=== PATIENT | male | born 1955 | race Caucasian/White ===

== ENCOUNTER 2020-10-06 14:47 | Observation (INO) ==
[2020-10-06] MEDS ORDERED: VANCOMYCIN HCL 2,000 MG in SODIUM CHLORIDE 0.9% 500 ML IV ONE (15:05)
[2020-10-06] MEDS ORDERED: CEFEPIME 2,000 MG/20 ML VIAL IV STA (15:05)
[2020-10-06] MEDS ORDERED: VANCOMYCIN CONSULT ACTIVE PRN ×2 (15:05→19:48)
--- NOTE | 2020-10-06 15:12 | Emergency Department Note ---
Impression & Plan Infection, dialysis vascular access, ESRD (end stage renal disease), Cellulitis ED Provider Note NAME: MICHAEL GREEN AGE: 65 SEX: M : 1955 ARRIVES VIA: Walk-In INFORMANT: Patient ED PROVIDER(S): Estuardo Car DO CHIEF COMPLAINT: Infected dialysis line HPI: Patient is a 65-year-old male who presents the ER for infected dialysis catheter. He replaced just under 2 weeks ago. He has not noticed any redness but noticed that recently started draining yellow-green purulent material. He notes the skin around it has been red and he was instructed to come in. He got dialysis yesterday. He received 3-1/2 hours. He denies any headache or change in vision. No fevers. No chest pain shortness of breath nausea vomiting or diarrhea. No dysuria urgency or frequency. No other exacerbating or remitting factors. ROS: See above HPI for pertinent positives & negatives. A total of 10 systems reviewed and were otherwise negative. PAST MEDICAL HISTORY:See Below PAST SURGICAL HISTORY:See Below FAMILY HISTORY:See Below SOCIAL HISTORY:See Below HOME MEDICATIONS:See Below ALLERGIES:See Below VITALS:See Below PHYSICAL EXAMINATION: GENERAL: Sitting up in bed, alert, well appearing, well nourished, no distress, non-toxic EYE EXAM: normal conjunctiva. OROPHARYNX: mask in place NECK: supple, no nuchal rigidity, no adenopathy, non-tender CHEST: Erythema on the right upper chest at the access point of the central catheter. Erythematous 12 to 12 cm. Yellow/green purulent material along with some intermittent blood on the 4 x 4's present. LUNGS: Clear to auscultation. Normal chest wall mechanics HEART: no murmurs, S1 normal and S2 normal UPPER EXTREMITIES: upper extremities are grossly normal. LOWER EXTREMITIES: No pitting edema. NEURO EXAM: Normal sensorium, cranial nerves II-XII grossly intact, normal speech, no gross weakness of arms, no gross weakness of legs. MEDICAL DECISION MAKING: Patient is a 65-year-old male end-stage kidney disease on dialysis who had a tunneled cath placed by Dr. Florentino. Patient notes its been present for about 2 weeks. Per review of the chart was placed on 01 of September. He had full course of dialysis performed yesterday. He was referred in today as he noticed yellow purulent drainage from the tunneled catheter on his right chest along with surrounding redness. He is uncertain of how long this has been present. IV was established blood work was obtained. Labs show anemia of 8.7 consistent with previous. No significant leukocytosis. INR was unremarkable. BMP with a creatinine of 6.7. BUN was elevated at 67. Lactate was normal. LFTs bilirubin was unremarkable. Troponin was checked was 0.072. He denies any chest pain or shortness of breath. Do favor that this likely secondary to his CKD. Covid was negative. X-ray was unremarkable. Patient was given IV cefepime and vancomycin. He was updated bedside. Discussed case with Dr. Florentino. Discussed the case with Abhilash Bradley for the hospitalist for admission. Triage Nursing notes reviewed. Limited review of prior medical records performed Vital Signs: reviewed and remarkable for hypertensive, tachycardic and hypothermic Differential diagnosis: Differential diagnosis includes etiologies such as sepsis, UTI, pneumonia, metabolic, electrolyte abnormalities, cardiac sources, intracerebral event, toxicologic, neurological, as well as others were entertained. ER treatment provided: See below Diagnostics interpreted by me: ECG: Sinus rhythm rate 84 Inferior Q waves T wave inversion in inferior leads QTC 460 Cardiac Monitoring: An order was placed for continuous cardiac monitoring. The monitor shows a rate of 81 with sinus rhythm. Laboratory studies: As stated above and show below. Imaging studies: Portable AP upright 1 view chest shows no focal infiltrate or pneumothorax Consultation(s): Discussed with Dr. Abhilash Bradley for further evaluation Discussed with Dr. Florentino who will evaluate him for possible removal of catheter Procedures: none Critical Care: None Past Med/Surg History Medical History Anemia Patient has received 2 units pRBC's this admission. Brain aneurysm Chronic renal impairment, stage 4 (severe) Coronary artery disease involving [place] coronary artery of [place] heart ESRD (end stage renal disease) History of CVA (cerebrovascular accident) Hypertension Macular degeneration Mixed hyperlipidemia Screen for colon cancer Screening for prostate cancer Type 2 diabetes mellitus, without long-term current use of insulin Surgical History H/O inguinal hernia repair Family History Father Prostate cancer Liver cancer Social History Smoking Status: Former smoker Tobacco Type: Cigarettes Second Hand Exposure: No; Hx Alcohol Use: No Hx Substance Use: No Preferred Language: Maori Communication Ability: Effective Member Certification Manager Required: No Beliefs That Will Affect Care: None marital status: Current Living Situation: Alone Feels Safe at Home: Yes Safety Concerns: Feels Safe At This Time caffeine: No Assistive Devices: Glasses Allergies Allergies Allergy/AdvReac Type Severity Reaction Status Date / Time No Known Allergies Allergy Verified 10/06/20 16:38 Home Meds Home Medications Medication Instructions Recorded Confirmed amlodipine 5 mg PO BID 10/06/20 10/06/20 calcium acetate(phosphat bind) 1,334 mg PO .WITH SNACKS 10/06/20 10/06/20 calcium acetate(phosphat bind) 2,001 mg PO TIDM 10/06/20 10/06/20 simvastatin 10 mg PO HS 10/06/20 10/06/20 Previous Rx's Medication Instructions Recorded B complex with C 20-folic acid 1 cap PO QAM #30 cap 09/04/20 [Renal Caps] acetaminophen 650 mg PO Q4H PRN #0 tab 09/04/20 lisinopril 10 mg PO HS #30 tab 09/04/20 Results & Data (ED) Vital Signs Vital Signs - 24 hr 10/06/20 14:54 10/06/20 15:11 10/06/20 15:41 Temperature 35.8 C L 36.6 C Temperature Source Temporal Artery Scan Oral Pulse Rate 96 H Pulse Rate [Apical] 80 Pulse Rate from SpO2 Sensor Respiratory Rate 20 18 Respiratory Effort / Characteristics Non-Labored Spontaneous Non-Labored Respiratory Depth Normal Blood Pressure 174/113 H Blood Pressure [Right Arm] 143/88 H Blood Pressure Mean 133 Blood Pressure Mean [Right Arm] 106 Blood Pressure Position Sitting Pulse Oximetry 98 94 95 Oxygen Delivery Method Room Air Room Air Room Air Sepsis Recent Fever Within 48 Hours No Sepsis New/Unexplained Change in Mental Status N/A Sepsis Action Taken by Nursing No Action Required 10/06/20 15:43 10/06/20 16:00 10/06/20 16:30 Temperature Temperature Source Pulse Rate 80 78 78 Pulse Rate [Apical] Pulse Rate from SpO2 Sensor 80 78 77 Respiratory Rate 21 19 15 Respiratory Effort / Characteristics Respiratory Depth Blood Pressure 127/83 130/77 137/83 Blood Pressure [Right Arm] Blood Pressure Mean 97 94 101 Blood Pressure Mean [Right Arm] Blood Pressure Position Pulse Oximetry 98 96 100 Oxygen Delivery Method Room Air Room Air Room Air Sepsis Recent Fever Within 48 Hours Sepsis New/Unexplained Change in Mental Status Sepsis Action Taken by Nursing 10/06/20 17:00 Temperature Temperature Source Pulse Rate 79 Pulse Rate [Apical] Pulse Rate from SpO2 Sensor 78 Respiratory Rate 24 Respiratory Effort / Characteristics Respiratory Depth Blood Pressure 144/81 H Blood Pressure [Right Arm] Blood Pressure Mean 102 Blood Pressure Mean [Right Arm] Blood Pressure Position Pulse Oximetry 98 Oxygen Delivery Method Room Air Sepsis Recent Fever Within 48 Hours Sepsis New/Unexplained Change in Mental Status Sepsis Action Taken by Nursing Laboratory Data Result diagrams: 10/06/20 15:28 10/06/20 15:28 Lab Results 10/06/20 10/06/20 10/06/20 Range/Units 15:28 15:28 15:28 WBC 7.82 (4.8-10.8) K/uL RBC 2.69 L (4.7-6.1) M/uL Hgb 8.7 L (14.0-18.0) g/dL Hct 27.0 L (42-52) % MCV 100.4 H (80-100) fL MCH 32.3 (25-34) pg MCHC 32.2 (32-36) g/dL RDW Std Deviation 68.0 H (36.4-46.3) fL RDW Coeff of Leonor 18.3 H (11.5-14.5) % Plt Count 300 (130-400) K/uL MPV 9.0 (7.4-10.4) fL Immature Gran % (Auto) 0.1 % Neut % (Auto) 63.0 % Lymph % (Auto) 17.5 % [place] % (Auto) 12.9 % Eos % (Auto) 5.5 % Baso % (Auto) 1.0 % Neut # (Auto) 4.92 (1.4-6.5) K/uL Lymph # (Auto) 1.37 (1.2-3.4) K/uL [place] # (Auto) 1.01 H (0.11-0.59) K/uL Eos # (Auto) 0.43 (0-0.5) K/uL Baso # (Auto) 0.08 (0-0.2) K/uL Immature Gran # (Auto) 0.01 (0.00-0.02) K/uL PT (9.0-12.0) Seconds INR (0.9-1.1) APTT (21.0-31.0) Seconds PTT Ratio Sodium 138 (136-145) mmol/L Potassium 5.1 (3.5-5.1) mmol/L Chloride 101 (98-107) mmol/L Carbon Dioxide 26 (21-32) mmol/L Anion Gap 10.0 (3-11) BUN 67 H (7-18) mg/dl Creatinine 6.71 H* (0.6-1.4) mg/dl Est Cr Clr Drug Dosing 12.9 ml/min Est GFR ( Amer) 9.1 Est GFR (Non-Af Amer) 7.8 BUN/Creatinine Ratio 10.0 (10-20) Glucose 93 (70-99) mg/dl Lactate (0.4-2.0) mmol/L Calcium 8.6 (8.5-10.1) mg/dl Magnesium 2.5 H (1.8-2.4) mg/dl Total Bilirubin 0.5 (0.2-1) mg/dl AST 15 (15-37) U/L ALT 20 (12-78) U/L Alkaline Phosphatase 126 H (45-117) U/L Troponin I 0.072 H* (0-0.045) ng/ml Total Protein 7.0 (6.4-8.2) gm/dl Albumin 3.4 (3.4-5.0) gm/dl Globulin 3.6 (2.5-4.0) gm/dl Albumin/Globulin Ratio 1.0 (0.9-2) Procalcitonin 0.39 (0-0.5) ng/ml COVID-19 Eval Order SARS-CoV-2, RNA, NAAT (NEGATIVE) 10/06/20 10/06/20 10/06/20 Range/Units 15:28 15:28 15:30 WBC (4.8-10.8) K/uL RBC (4.7-6.1) M/uL Hgb (14.0-18.0) g/dL Hct (42-52) % MCV (80-100) fL MCH (25-34) pg MCHC (32-36) g/dL RDW Std Deviation (36.4-46.3) fL RDW Coeff of Leonor (11.5-14.5) % Plt Count (130-400) K/uL MPV (7.4-10.4) fL Immature Gran % (Auto) % Neut % (Auto) % Lymph % (Auto) % [place] % (Auto) % Eos % (Auto) % Baso % (Auto) % Neut # (Auto) (1.4-6.5) K/uL Lymph # (Auto) (1.2-3.4) K/uL [place] # (Auto) (0.11-0.59) K/uL Eos # (Auto) (0-0.5) K/uL Baso # (Auto) (0-0.2) K/uL Immature Gran # (Auto) (0.00-0.02) K/uL PT 10.8 (9.0-12.0) Seconds INR 1.1 (0.9-1.1) APTT 25.3 (21.0-31.0) Seconds PTT Ratio 1.0 Sodium (136-145) mmol/L Potassium (3.5-5.1) mmol/L Chloride (98-107) mmol/L Carbon Dioxide (21-32) mmol/L Anion Gap (3-11) BUN (7-18) mg/dl Creatinine (0.6-1.4) mg/dl Est Cr Clr Drug Dosing ml/min Est GFR ( Amer) Est GFR (Non-Af Amer) BUN/Creatinine Ratio (10-20) Glucose (70-99) mg/dl Lactate 1.0 (0.4-2.0) mmol/L Calcium (8.5-10.1) mg/dl Magnesium (1.8-2.4) mg/dl Total Bilirubin (0.2-1) mg/dl AST (15-37) U/L ALT (12-78) U/L Alkaline Phosphatase (45-117) U/L Troponin I (0-0.045) ng/ml Total Protein (6.4-8.2) gm/dl Albumin (3.4-5.0) gm/dl Globulin (2.5-4.0) gm/dl Albumin/Globulin Ratio (0.9-2) Procalcitonin (0-0.5) ng/ml COVID-19 Eval [facility] SARS-CoV-2, RNA, NAAT (NEGATIVE) 10/06/20 Range/Units 15:30 WBC (4.8-10.8) K/uL RBC (4.7-6.1) M/uL Hgb (14.0-18.0) g/dL Hct (42-52) % MCV (80-100) fL MCH (25-34) pg MCHC (32-36) g/dL RDW Std Deviation (36.4-46.3) fL RDW Coeff of Leonor (11.5-14.5) % Plt Count (130-400) K/uL MPV (7.4-10.4) fL Immature Gran % (Auto) % Neut % (Auto) % Lymph % (Auto) % [place] % (Auto) % Eos % (Auto) % Baso % (Auto) % Neut # (Auto) (1.4-6.5) K/uL Lymph # (Auto) (1.2-3.4) K/uL [place] # (Auto) (0.11-0.59) K/uL Eos # (Auto) (0-0.5) K/uL Baso # (Auto) (0-0.2) K/uL Immature Gran # (Auto) (0.00-0.02) K/uL PT (9.0-12.0) Seconds INR (0.9-1.1) APTT (21.0-31.0) Seconds PTT Ratio Sodium (136-145) mmol/L Potassium (3.5-5.1) mmol/L Chloride (98-107) mmol/L Carbon Dioxide (21-32) mmol/L Anion Gap (3-11) BUN (7-18) mg/dl Creatinine (0.6-1.4) mg/dl Est Cr Clr Drug Dosing ml/min Est GFR ( Amer) Est GFR (Non-Af Amer) BUN/Creatinine Ratio (10-20) Glucose (70-99) mg/dl Lactate (0.4-2.0) mmol/L Calcium (8.5-10.1) mg/dl Magnesium (1.8-2.4) mg/dl Total Bilirubin (0.2-1) mg/dl AST (15-37) U/L ALT (12-78) U/L Alkaline Phosphatase (45-117) U/L Troponin I (0-0.045) ng/ml Total Protein (6.4-8.2) gm/dl Albumin (3.4-5.0) gm/dl Globulin (2.5-4.0) gm/dl Albumin/Globulin Ratio (0.9-2) Procalcitonin (0-0.5) ng/ml COVID-19 Eval Order SARS-CoV-2, RNA, NAAT NEGATIVE (NEGATIVE) Administered Medications Vancomycin HCl 2,000 mg/ (Sodium Chloride) 540 mls @ 200 mls/hr IV NOW ONE Stop: 10/06/20 17:46 Last Admin: 10/06/20 15:44 Dose: 200 mls/hr Documented by: [id number] Discontinued Medications Cefepime HCl (Maxipime) 2,000 mg in 20 mls @ 5 mls/min IV NOW STA; Protocol Stop: 10/06/20 15:08 Last Admin: 10/06/20 15:44 Dose: 5 mls/min Documented by: [id number] Discharge Plan Visit Data Chief Complaint: Infection Stated Complaint: PORT IN RIGHT SIDE INFECTED ED Provider: Estuardo Car Discharge Problem: Infection, dialysis vascular access, ESRD (end stage renal disease), Cellulitis Forms Stand Alone Forms: My [facility] Prescriptions Prescriptions: No Action lisinopril 10 mg Tablet 10 mg PO HS Qty: 30 RF: 0 Renal Caps 1 mg Capsule 1 cap PO QAM Qty: 30 RF: 0 acetaminophen 325 mg Tablet 650 mg PO Q4H PRN (Reason: pain) Qty: 0 RF: 0 simvastatin 10 mg tablet 10 mg PO HS RF: 0 amlodipine 5 mg tablet 5 mg PO BID RF: 0 calcium acetate(phosphat bind) 667 mg capsule 1,334 mg PO .WITH SNACKS RF: 0 calcium acetate(phosphat bind) 667 mg capsule 2,001 mg PO TIDM RF: 0 Discharge Problem: Infection, dialysis vascular access Qualifiers: Encounter type: initial encounter Qualified Code(s): T82.7XXA - Infection and inflammatory reaction due to other cardiac and vascular devices, implants and grafts, initial encounter Cellulitis Qualifiers: Site of cellulitis: unspecified site Qualified Code(s): L03.90 - Cellulitis, unspecified
[2020-10-06 15:38] LABS: Basophils # (auto) 0.08 K/uL (0-0.2); Eosinophils # (auto) 0.43 K/uL (0-0.5); Eosinophils % (auto) 5.5 %; Hemoglobin 8.7 g/dL (14.0-18.0); Immature Granulocytes # (auto) 0.01 K/uL (0.00-0.02); Immature Granulocytes % (auto) 0.1 %; Lymphocytes # (auto) 1.37 K/uL (1.2-3.4); Lymphocytes % (auto) 17.5 %; Mean Corpuscular Hemoglobin 32.3 pg (25-34); Mean Corpuscular Hgb Conc 32.2 g/dL (32-36); Mean Corpuscular Volume 100.4 fL (80-100); Monocytes # (auto) 1.01 K/uL (0.11-0.59); Monocytes % (auto) 12.9 %; Neutrophils # (auto) 4.92 K/uL (1.4-6.5); Platelet Count 300 K/uL (130-400); RDW Coefficient of Variation 18.3 % (11.5-14.5); Red Blood Count 2.69 M/uL (4.7-6.1); White Blood Count 7.82 K/uL (4.8-10.8)
--- NOTE | 2020-10-06 15:49 | XRay Report ---
XR chest 1V portable HISTORY: SEPSIS COMPARISON: Chest 08/31/2020. FINDINGS: Right jugular catheter terminates at the proximal SVC. The heart remains mildly enlarged. N o pneumothorax. No pleural effusions. No new focal lung consolidations to suggest pneumonia. No evide nce for pulmonary edema. IMPRESSION: 1. Stable cardiomegaly. 2. No focal lung consolidations to suggest pneumonia. ACT 112: Negative or not required by law. Electronically signed by: Damian Ibrahim M.D. 10/06/2020 3:48 PM
[2020-10-06 15:51] LABS: INR 1.1 (0.9-1.1); Partial Thromboplastin Time 25.3 Seconds (21.0-31.0); Prothrombin Time 10.8 Seconds (9.0-12.0)
[2020-10-06 16:14] LABS: Albumin Level 3.4 gm/dl (3.4-5.0); Bilirubin,Total 0.5 mg/dl (0.2-1); Calcium 8.6 mg/dl (8.5-10.1); Creatinine Clr Calc Pharmacy 12.9 ml/min; Est GFR (African American) 9.1; Est GFR (Non-African American) 7.8; Globulin 3.6 gm/dl (2.5-4.0); Magnesium 2.5 mg/dl (1.8-2.4); Potassium 5.1 mmol/L (3.5-5.1); Troponin I 0.072 ng/ml (0-0.045)
--- NOTE | 2020-10-06 19:04 | History & Physical Report ---
Date of Service October 06, 2020 Assessment & Plan (1) Cellulitis: 65 yo M with hx ESRD on dialysis, CVA, CAD, DM2, HTN, Anemia admitted for concern of cellulitis and possible dialysis catheter infection. Cellulitis - does not appear septic, skin around catheter is erythematous and thickened otherwise nontender and less concerning for deeper infection/abscess. - WBC 7.82, procal negative at 0.39, afebrile, normotensive and not tachycardic - received 1 dose vanc and cefepime in ED, continued to floor for broad spectrum coverage in individual high risk for MRSA/Pseudomonas - blood cultures pending - CBC in AM Present on Admission?: Yes (2) ESRD on dialysis: Nephrology consulted, appreciate recommendations regarding dialysis and port management Originally planned for US of left arm and fistula in mid october Depending on infection, may need fistula sooner, follows with Dr. Florentino for vasc BUN/CR 67/6.71 CrCl 12.9 Potassium borderline at 5.1, repeat BMP in AM Renally dose all medications continue home nephro caps Dialysis TTHSa strict I/O, daily weights Present on Admission?: Yes (3) Anemia: macrocytic anemia, Hg 8.7, MCV 100.4 hx blood transfusion last admission transfusion criteria: Hg <8.0 or symptomatic <10.0 follow hg on CBC Present on Admission?: Yes (4) Hypertension: continue lisinopril, amlodipine for BP control Present on Admission?: Yes (5) Diabetes: A1c 5.21 august 2020 diet controlled Present on Admission?: Yes (6) Elevated troponin: Elevated troponin most likely secondary to ESRD. 0.072, less than previous recordings of 0.114. no complaints of chest pain EKG without changes DVT ppx: chemical contraindicated with hx brain aneurysm, up walking Q4H and SCDs while in bed FEN/GI: dialysis diet, oral fluids Code Status: Full Code Dispo: Med/Surg with Tele Present on Admission?: Yes History of Present Illness Primary Care Provider: Otto Machuca, DO 65yo M with PMH HTN, Brain aneurysm, diet controlled DM2, CVA, CAD, ESRD on Dialysis with port placement 1 mo ago, in ER today for concern of infection of dialysis port. States he had dialysis yesterday (goes ,,S) and noticed this morning that there appeared to be brown seepage from the catheter site. Says there was also redness around the area but denies any localized tenderness. Has not otherwise had any issues with the port since placement. No recent fevers, chills, weakness, chest pain, sob, nausea, vomiting Allergies Allergy/AdvReac Type Severity Reaction Status Date / Time No Known Allergies Allergy Verified 10/06/20 16:38 Home Medications Medication Instructions Recorded Confirmed Type B complex with C 20-folic acid 1 cap PO QAM #30 cap 09/04/20 10/06/20 Rx [Renal Caps] acetaminophen 650 mg PO Q4H PRN #0 tab 09/04/20 10/06/20 Rx lisinopril 10 mg PO HS #30 tab 09/04/20 10/06/20 Rx amlodipine 5 mg PO BID 10/06/20 10/06/20 History calcium acetate(phosphat bind) 1,334 mg PO .WITH SNACKS 10/06/20 10/06/20 History calcium acetate(phosphat bind) 2,001 mg PO TIDM 10/06/20 10/06/20 History simvastatin 10 mg PO HS 10/06/20 10/06/20 History Past Med/Surg History Medical History Anemia Patient has received 2 units pRBC's this admission. Brain aneurysm Chronic renal impairment, stage 4 (severe) Coronary artery disease involving [place] coronary artery of [place] heart ESRD (end stage renal disease) History of CVA (cerebrovascular accident) Hypertension Macular degeneration Mixed hyperlipidemia Screen for colon cancer Screening for prostate cancer Type 2 diabetes mellitus, without long-term current use of insulin Surgical History H/O inguinal hernia repair Family History Father Prostate cancer Liver cancer Social History Smoking Status: Former smoker Tobacco Type: Cigarettes Second Hand Exposure: No; Hx Alcohol Use: No Hx Substance Use: No Preferred Language: Lao Communication Ability: Effective Maintenance Mechanic Helper Required: No Beliefs That Will Affect Care: None marital status: Single Current Living Situation: Alone Feels Safe at Home: Yes Safety Concerns: Feels Safe At This Time caffeine: No Assistive Devices: None Review of Systems Constitutional: no fever, no chills, no fatigue, no malaise and no weakness Respiratory: no cough, no dyspnea, no hemoptysis and no pain on inspiration Cardiovascular: no chest pain, no dyspnea on exertion, no orthopnea, no palpitations and no edema Gastrointestinal: no abdominal pain, no nausea, no vomiting, no constipation, no diarrhea/loose stools and no blood in stools Genitourinary: no dysuria Integumentary: + erythema Physical Exam Physical Exam: Constitutional: obese, in no apparent distress, sitting comfortably in bed. Eyes: EOMI, pupils equal and reactive bilaterally, no scleral icterus Cardiac: RRR, no murmurs, gallops or rubs. Normal S1, S2 Pulm: CTA BL, no wheezes, rhonchi, crackles or rubs, moving air well throughout both lungs Abd: soft, nontender, nondistended, normal bowel sounds, no rebound or guarding Extremities: 2+ peripheral pulses, no edema, venous stasis changes bilaterally over shins Neuro: no focal deficits, moving all 4 limbs, A&Ox3 Skin: Dialysis port on right upper chest in place with surrounding erythema, thickening skin, nontender, not warm to touch, some dried drainage on gauze Results & Data Results & Data ([facility]) Vital Signs (Past 12 Hours) Vital Signs Temp Pulse Pulse Resp BP BP Pulse Ox 10/06/20 18:00 75 17 149/86 H 98 10/06/20 17:30 74 16 140/85 99 10/06/20 17:11 36.9 C 76 19 144/81 H 99 10/06/20 17:00 79 24 144/81 H 98 10/06/20 16:30 78 15 137/83 100 10/06/20 16:00 78 19 130/77 96 10/06/20 15:43 80 21 127/83 98 10/06/20 15:41 36.6 C 80 18 143/88 H 95 10/06/20 15:11 94 10/06/20 14:54 35.8 C L 96 H 20 174/113 H 98 Laboratory Results WBC 7.82 K/uL (4.8-10.8) 10/06/20 15:28 RBC 2.69 M/uL (4.7-6.1) L 10/06/20: Hgb 8.7 g/dL (14.0-18.0) L 10/06/20: Hct 27.0 % (42-52) L 10/06/20: MCV 100.4 fL (80-100) H 10/06/20: MCH 32.3 pg (25-34) 10/06/20 MCHC 32.2 g/dL (32-36) 10/06/20 RDW Std Deviation 68.0 fL (36.4-46.3) H 10/06/20 RDW Coeff of Leonor 18.3 % (11.5-14.5) H 10/06/20 Plt Count 300 K/uL (130-400) 10/06/20 MPV 9.0 fL (7.4-10.4) 10/06/20 Immature Gran % (Auto) 0.1 % 10/06/20 Neut % (Auto) 63.0 % 10/06/20 Lymph % (Auto) 17.5 % 10/06/20 [place] % (Auto) 12.9 % 10/06/20: Eos % (Auto) 5.5 % 10/06/20 Baso % (Auto) 1.0 % 10/06/20 Neut # (Auto) 4.92 K/uL (1.4-6.5) 10/06/20 Lymph # (Auto) 1.37 K/uL (1.2-3.4) 10/06/20 [place] # (Auto) 1.01 K/uL (0.11-0.59) H 10/06/20 Eos # (Auto) 0.43 K/uL (0-0.5) 10/06/20 Baso # (Auto) 0.08 K/uL (0-0.2) 10/06/20 Immature Gran # (Auto) 0.01 K/uL (0.00-0.02) 10/06/20: PT 10.8 Seconds (9.0-12.0) 10/06/20: INR 1.1 (0.9-1.1) 10/06/20 15: APTT 25.3 Seconds (21.0-31.0) 10/06/20 15: PTT Ratio 1.0 10/06/20 15: Sodium 138 mmol/L (136-145) 10/06/20 15: Potassium 5.1 mmol/L (3.5-5.1) 10/06/20 15: Chloride 101 mmol/L (98-107) 10/06/20 15: Carbon Dioxide 26 mmol/L (21-32) 10/06/20 15: Anion Gap 10.0 (3-11) 10/06/20 15: BUN 67 mg/dl (7-18) H 10/06/20 15: Creatinine 6.71 mg/dl (0.6-1.4) H* 10/06/20 15: Est Cr Clr Drug Dosing 12.9 ml/min 10/06/20 15: Est GFR ( Amer) 9.1 10/06/20 15: Est GFR (Non-Af Amer) 7.8 10/06/20 15: BUN/Creatinine Ratio 10.0 (10-20) 10/06/20 15: Glucose 93 mg/dl (70-99) 10/06/20 15: Lactate 1.0 mmol/L (0.4-2.0) 10/06/20 15: Calcium 8.6 mg/dl (8.5-10.1) 10/06/20: Magnesium 2.5 mg/dl (1.8-2.4) H 10/06/20 15: Total Bilirubin 0.5 mg/dl (0.2-1) 10/06/20 15: AST 15 U/L (15-37) 10/06/20 15: ALT 20 U/L (12-78) 10/06/20 15: Alkaline Phosphatase 126 U/L (45-117) H 10/06/20 15:28 Troponin I 0.072 ng/ml (0-0.045) H* 10/06/20 15: Total Protein 7.0 gm/dl (6.4-8.2) 10/06/20 15:28 Albumin 3.4 gm/dl (3.4-5.0) 10/06/20 15:28 Globulin 3.6 gm/dl (2.5-4.0) 10/06/20 15:28 Albumin/Globulin Ratio 1.0 (0.9-2) 10/06/20 15:28 Procalcitonin 0.39 ng/ml (0-0.5) 10/06/20 15:28 COVID-19 Eval Order Covid19 IDNow [facility] 10/06/20 15:30 SARS-CoV-2, RNA, NAAT NEGATIVE (NEGATIVE) 10/06/20 15:30 Code Status & VTE Plan VTE Prophylaxis Plan VTE Prophylaxis will be ordered: Yes Supervising Physician Co-Signing Physician Notes I personally saw and examined the patient. I verified all bird points and agree with Resident Physician Dr Matilda Evans with the following exceptions and/or additions: 65-year-old male presents to the ER with worsening erythema around the exit site of his dialysis catheter since his dialysis yesterday. No fever or chills. O/E generally well-appearing, no acute distress, chest CTAB, HS RRR without murmur, cellulitic area (bright erythema and warmth) surrounding exit site of dialysis catheter without obvious drainage, extends to edge of dressing but not beyond this. A/P Cellulitis - continue broad spectrum antibiotics with vancomycin and cefepime monitor cellulitic area. Patient is not septic. Follow up blood cultures. Resident Activity Tracking Resident Involvement: Resident Care Provided Care Provided: Adult Hospital Medicine (1) Anemia Chronic kidney disease stage: on chronic dialysis (2) Cellulitis Site of cellulitis: unspecified site Qualified Code(s): L03.90 - Cellulitis, unspecified
[2020-10-06] MEDS ORDERED: CALCIUM ACETATE 667 MG CAP/TAB PO PRN (19:48)
[2020-10-06] MEDS ORDERED: VANCOMYCIN HCL 1,000 MG in SODIUM CHLORIDE 0.9% 250 ML IV SCH (19:48)
[2020-10-06] MEDS ORDERED: ACETAMINOPHEN 325 MG TAB PO PRN (19:48)
--- NOTE | 2020-10-06 20:14 | Pharmacy Report ---
Pharmacy Abx Dose Short Note - Date of Service October 06, 2020 - Assessment & Plan Assessment 65 year old M receiving vancomycin and cefepime for treatment of possible HD catheter infection/cellulitis. Pt has DM, ESRD on HD TuThSa. Blood cultures pending. Plan Vancomycin for treatment of possible HD catheter infection/cellulitis Vancomycin IV * Loading dose: 2000 mg (20 mg/kg) * Goal trough level : 15 to 20 mcg/mL for now * Random level ordered for 10/07/20 with am labs. * Dosing per level. HD expected to be ordered for 10/07. Pt also on Cefepime 1gm q24h (not a pharmacy consult). Pharmacy will continue to follow and will adjust dose/frequency as necessary. Thank you.
[2020-10-06] MEDS: SIMVASTATIN 10 MG TAB PO SCH (21:20)
[2020-10-06] MEDS: lisinopril 10 MG TAB PO SCH (21:20)
[2020-10-06] MEDS: amLODIPine BESYLATE 5 MG TAB PO SCH (21:20)
[2020-10-07 06:42] LABS: Basophils # (auto) 0.11 K/uL (0-0.2); Basophils % (auto) 1.1 %; Eosinophils # (auto) 0.61 K/uL (0-0.5); Eosinophils % (auto) 6.2 %; Hemoglobin 9.1 g/dL (14.0-18.0); Immature Granulocytes # (auto) 0.01 K/uL (0.00-0.02); Immature Granulocytes % (auto) 0.1 %; Lymphocytes # (auto) 1.96 K/uL (1.2-3.4); Lymphocytes % (auto) 20.1 %; Mean Corpuscular Hemoglobin 31.7 pg (25-34); Mean Corpuscular Hgb Conc 32.5 g/dL (32-36); Mean Corpuscular Volume 97.6 fL (80-100); Mean Platelet Volume 8.9 fL (7.4-10.4); Monocytes # (auto) 0.83 K/uL (0.11-0.59); Monocytes % (auto) 8.5 %; Neutrophils # (auto) 6.25 K/uL (1.4-6.5); Platelet Count 302 K/uL (130-400); RDW Coefficient of Variation 17.9 % (11.5-14.5); RDW Standard Deviation 64.1 fL (36.4-46.3); Red Blood Count 2.87 M/uL (4.7-6.1); White Blood Count 9.77 K/uL (4.8-10.8)
[2020-10-07 07:01] LABS: Appearance Urine Clear (Clear); Bacteria Urine Automated Negative (Negative); Bilirubin Urine Negative (Negative); Blood Urine Negative (Negative); Color Urine Yellow; Glucose Urine UA Trace (Negative); Ketones Urine Negative (Negative); Leukocyte Esterase Urine Negative (Negative); Nitrite Urine Negative (Negative); RBC Urine Automated 0-4 /hpf (0-4); Specific Gravity Urine 1.012 (1.000-1.030); Urobilinogen Urine Negative (Negative); pH Urine 8.5 (4.5-7.5)
[2020-10-07 07:09] LABS: Protein Urine 3+ (Negative)
[2020-10-07 07:22] LABS: Albumin Level 3.5 gm/dl (3.4-5.0); BUN Creatinine Ratio 9.3 (10-20); Bilirubin,Total 0.6 mg/dl (0.2-1); Calcium 8.9 mg/dl (8.5-10.1); Creatinine Clr Calc Pharmacy 10.7 ml/min; Est GFR (African American) 7.5; Est GFR (Non-African American) 6.5; Globulin 3.4 gm/dl (2.5-4.0); Potassium 4.9 mmol/L (3.5-5.1); Total Protein 6.9 gm/dl (6.4-8.2)
[2020-10-07] MEDS: CALCIUM ACETATE 667 MG CAP/TAB PO SCH ×3 (07:45→18:02)
[2020-10-07] MEDS: amLODIPine BESYLATE 5 MG TAB PO SCH ×2 (07:47→21:24)
[2020-10-07] MEDS ORDERED: diphenhydrAMINE Capsule 25 MG CAP PO ONE (08:40)
[2020-10-07] MEDS ORDERED: EPOETIN ALFA 40,000 UNITS/ML VIAL IV ONE (09:28)
--- NOTE | 2020-10-07 10:54 | Pharmacy Report ---
Pharmacy Abx Dose Short Note - Date of Service October 07, 2020 - Assessment & Plan Assessment 65 year old M receiving empiric vancomycin and cefepime for treatment of possible HD catheter infection/cellulitis * ESRD on HD (TuThSa) - patient ordered HD for today * pending Plan Vancomycin * Patient received a one time dose of 2000 mg (22 mg/kg) IV 10/06 @ 1544 * Random level drawn 10/07 AM resulted at 32.8 mcg/mL. No further vanco needed today. * Repeat random level tomorrow AM (anticipate level to be ~20-22 mcg/mL at that time unless pt has significant residual urine output). Additional levels may be drawn pre-HD. Pharmacy will continue to follow and will adjust dose/frequency as necessary. Thank you.
--- NOTE | 2020-10-07 12:01 | Ultrasound Report ---
US venous mapping UE BI CLINICAL HISTORY: END STAGE RENAL DISEASE COMPARISON STUDY: No previous studies for comparison. FINDINGS: A venous mapping study was performed. Measurements were recorded on the ultrasound workshee t which was scanned into the PACS system. The study is most significant for a left cephalic vein whic h measures 1.8 mm at the shoulder, but then cannot be followed distally. IMPRESSION: 1. Venous mapping with measurements as reported on the ultrasound worksheet. ACT 112: Negative or not required by law. Electronically signed by: Mehdi Parra M.D. 10/07/2020 12:00 PM
--- NOTE | 2020-10-07 12:12 | Nephrology Consultation ---
Date of Consultation October 07, 2020 Assessment & Plan (1) ESRD on dialysis: TTS. Rx reviewed with [facility] (3.5 hrs Qb 400; EDW 96.5 kg). Typical UF <1 L. Good urine output subjectively. UF goal today 1 L, as tolerated. Orders for treatment today entered into the EMR and reviewed with the dialysis nurse. BP and volume status acceptable. Electrolytes reasonably controlled. Renal diet. Phoslo QAC. Medications appropriate for kidney function. Vanco level elevated at 32 this AM. Reasonable consideration to hold additional dosing and repeat level prior to next dose. Anticipated HD will continue on TTS schedule. Ultimately, will defer to pharmacy for dosing. Cefepime 1 gram Q 24 hour dosing is acceptable. (2) Infection, dialysis vascular access: No systemic signs/symptoms of infection. Exit site infection. Blood culture pending. No emergent need for catheter removal. US pending. Vascular surgery consulted and plan of care discussed. Will monitor. (3) Anemia: Epogen 13917 units with HD today. (4) Hypertension: Remains on lisinopril and amlodipine per home Rx. BP acceptable. Volume status euvolemic. History of Present Illness Reason for Consultation: ESRD on HD Requesting Physician: Celio Green Attending Physician: Celio Green History of Present Illness Mr. Sorensen is a 65 year old male with longstanding CKD, AODM, hypertension, hypercholesterolemia and a remote history of a brain aneurysm. Collin stated HD during an admission to [facility] [place] last month. He had anemia requiring PRBC transfusion support. TDC was placed by Dr. Florentino on 09/01. The patient has continued HD at [facility] in [place] post discharge. I spoke to nursing staff at the dialysis unit today. Medical records from prior hospitalization were reviewed. I discussed the patient's condition and plan of care with Dr. Florentino. ESRD has been attributed to diabetic nephropathy, hypertensive nephrosclerosis or secondary FSGS. Collin presented to the ED at [facility] [place] yesterday with drainage and redness from his TDC exit site. Antibiotic therapy with vancomycin and cefepime has been provided. He remains otherwise afebrile. WBC normal he denies any systemic signs of symptoms of infection. Serous drainage noted from the catheter exit site for the past couple of weeks. Within the past week, particularly after shoveling snow, the catheter exit site had been irritated and developed an itch. In addition to drainage, redness had started to develop around the exit site. The last outpatient dialysis treatment was completed on Sunday without complications. There was not significant concern for infection at that time. Due to irritation at the catheter exit site, he presented to [facility] yesterday and was referred to the ED for evaluation. Allergies Allergy/AdvReac Type Severity Reaction Status Date / Time No Known Allergies Allergy Verified 10/06/20 16:38 Home Medications Medication Instructions Recorded Confirmed Type B complex with C 20-folic acid 1 cap PO QAM #30 cap 09/04/20 10/06/20 Rx [Renal Caps] acetaminophen 650 mg PO Q4H PRN #0 tab 09/04/20 10/06/20 Rx lisinopril 10 mg PO HS #30 tab 09/04/20 10/06/20 Rx amlodipine 5 mg PO BID 10/06/20 10/06/20 History calcium acetate(phosphat bind) 1,334 mg PO .WITH SNACKS 10/06/20 10/06/20 History calcium acetate(phosphat bind) 2,001 mg PO TIDM 10/06/20 10/06/20 History simvastatin 10 mg PO HS 10/06/20 10/06/20 History Patient History Medical History Anemia Patient has received 2 units pRBC's this admission. Brain aneurysm Chronic renal impairment, stage 4 (severe) Coronary artery disease involving [place] coronary artery of [place] heart ESRD (end stage renal disease) History of CVA (cerebrovascular accident) Hypertension Macular degeneration Mixed hyperlipidemia Screen for colon cancer Screening for prostate cancer Type 2 diabetes mellitus, without long-term current use of insulin Surgical History H/O inguinal hernia repair Family History Father Prostate cancer Liver cancer Social History Smoking Status: Former smoker Tobacco Type: Cigarettes Second Hand Exposure: No; Hx Alcohol Use: No Hx Substance Use: No Preferred Language: Argentine Communication Ability: Effective Home Care Administrator Required: No Beliefs That Will Affect Care: None marital status: Current Living Situation: Alone Feels Safe at Home: Yes Safety Concerns: Feels Safe At This Time caffeine: No Assistive Devices: None Review of Systems Constitutional: no weight loss, no weight gain and no problem reported Eyes: no problem reported Ear, Nose, Mouth, Throat: no problem reported Respiratory: no problem reported Cardiovascular: no problem reported Gastrointestinal: no problem reported Musculoskeletal: no problem reported Integumentary: no problem reported Neurologic: no problem reported Psychiatric: no problem reported Endocrine: no problem reported Hematologic / Lymphatic: no problem reported Physical Exam Constitutional: well developed; no acute distress Eyes: no scleral abnormality and no corneal abnormality ENMT: Mouth: no oral mucosal abnormality and oral mucous membranes not dry Neck: normal visual inspection and trachea midline Respiratory: normal respiratory effort Auscultation: lungs clear to auscultation bilaterally Cardiovascular: Rate/Rhythm: regular rate Heart Sounds: normal S1 and normal S2 Extremities: no edema Musculoskeletal: Extremities: no cyanosis and no clubbing Skin: normal turgor; no lesions Neurologic: Motor/Sensory: no tremor and no asterixis Psychiatric: Orientation: alert and oriented x 3 Results & Data ([facility]) Vital Signs (Past 12 Hours) Vital Signs Temp Pulse Resp BP Pulse Ox 10/07/20 07:39 36.7 C 73 18 145/76 H 100 Laboratory Results Laboratory Results - last 24 hr 10/06/20 10/06/20 10/06/20 15:28 15:28 15:28 WBC 7.82 RBC 2.69 L Hgb 8.7 L Hct 27.0 L MCV 100.4 H MCH 32.3 MCHC 32.2 RDW Std Deviation 68.0 H RDW Coeff of Leonor 18.3 H Plt Count 300 MPV 9.0 Immature Gran % (Auto) 0.1 Neut % (Auto) 63.0 Lymph % (Auto) 17.5 [place] % (Auto) 12.9 Eos % (Auto) 5.5 Baso % (Auto) 1.0 Neut # (Auto) 4.92 Lymph # (Auto) 1.37 [place] # (Auto) 1.01 H Eos # (Auto) 0.43 Baso # (Auto) 0.08 Immature Gran # (Auto) 0.01 PT INR APTT PTT Ratio Sodium 138 Potassium 5.1 Chloride 101 Carbon Dioxide 26 Anion Gap 10.0 BUN 67 H Creatinine 6.71 H* Est Cr Clr Drug Dosing 12.9 Est GFR ( Amer) 9.1 Est GFR (Non-Af Amer) 7.8 BUN/Creatinine Ratio 10.0 Glucose 93 Lactate Calcium 8.6 Magnesium 2.5 H Total Bilirubin 0.5 AST 15 ALT 20 Alkaline Phosphatase 126 H Troponin I 0.072 H* Total Protein 7.0 Albumin 3.4 Globulin 3.6 Albumin/Globulin Ratio 1.0 Procalcitonin 0.39 Urine Color Urine Appearance Urine pH Ur Specific [place] Urine Protein Urine Glucose (UA) Urine Ketones Urine Blood Urine Nitrite Urine Bilirubin Urine Urobilinogen Ur Leukocyte Esterase Urine WBC (Auto) Urine RBC (Auto) U Hyaline Cast (Auto) U Epithel Cells (Auto) Urine Bacteria (Auto) Random Vancomycin COVID-19 Eval Order SARS-CoV-2, RNA, NAAT Blood Type Antibody Screen 10/06/20 10/06/20 10/06/20 15:28 15:28 15:30 WBC RBC Hgb Hct MCV MCH MCHC RDW Std Deviation RDW Coeff of Leonor Plt Count MPV Immature Gran % (Auto) Neut % (Auto) Lymph % (Auto) [place] % (Auto) Eos % (Auto) Baso % (Auto) Neut # (Auto) Lymph # (Auto) [place] # (Auto) Eos # (Auto) Baso # (Auto) Immature Gran # (Auto) PT 10.8 INR 1.1 APTT 25.3 PTT Ratio 1.0 Sodium Potassium Chloride Carbon Dioxide Anion Gap BUN Creatinine Est Cr Clr Drug Dosing Est GFR ( Amer) Est GFR (Non-Af Amer) BUN/Creatinine Ratio Glucose Lactate 1.0 Calcium Magnesium Total Bilirubin AST ALT Alkaline Phosphatase Troponin I Total Protein Albumin Globulin Albumin/Globulin Ratio Procalcitonin Urine Color Urine Appearance Urine pH Ur Specific [place] Urine Protein Urine Glucose (UA) Urine Ketones Urine Blood Urine Nitrite Urine Bilirubin Urine Urobilinogen Ur Leukocyte Esterase Urine WBC (Auto) Urine RBC (Auto) U Hyaline Cast (Auto) U Epithel Cells (Auto) Urine Bacteria (Auto) Random Vancomycin COVID-19 Eval [facility] SARS-CoV-2, RNA, NAAT Blood Type Antibody Screen 10/06/20 10/06/20 10/07/20 15:30 20:10 06:00 WBC RBC Hgb Hct MCV MCH MCHC RDW Std Deviation RDW Coeff of Leonor Plt Count MPV Immature Gran % (Auto) Neut % (Auto) Lymph % (Auto) [place] % (Auto) Eos % (Auto) Baso % (Auto) Neut # (Auto) Lymph # (Auto) [place] # (Auto) Eos # (Auto) Baso # (Auto) Immature Gran # (Auto) PT INR APTT PTT Ratio Sodium Potassium Chloride Carbon Dioxide Anion Gap BUN Creatinine Est Cr Clr Drug Dosing Est GFR ( Amer) Est GFR (Non-Af Amer) BUN/Creatinine Ratio Glucose Lactate Calcium Magnesium Total Bilirubin AST ALT Alkaline Phosphatase Troponin I Total Protein Albumin Globulin Albumin/Globulin Ratio Procalcitonin Urine Color Yellow Urine Appearance Clear Urine pH 8.5 H Ur Specific [place] 1.012 Urine Protein 3+ H Urine Glucose (UA) Trace H Urine Ketones Negative Urine Blood Negative Urine Nitrite Negative Urine Bilirubin Negative Urine Urobilinogen Negative Ur Leukocyte Esterase Negative Urine WBC (Auto) 1-5 Urine RBC (Auto) 0-4 U Hyaline Cast (Auto) 1-5 U Epithel Cells (Auto) 5-10 H Urine Bacteria (Auto) Negative Random Vancomycin COVID-19 Eval Order SARS-CoV-2, RNA, NAAT NEGATIVE Blood Type O Positive Antibody Screen NEGATIVE 10/07/20 10/07/20 10/07/20 06:25 06:25 06:25 WBC 9.77 RBC 2.87 L Hgb 9.1 L Hct 28.0 L MCV 97.6 MCH 31.7 MCHC 32.5 RDW Std Deviation 64.1 H RDW Coeff of Leonor 17.9 H Plt Count 302 MPV 8.9 Immature Gran % (Auto) 0.1 Neut % (Auto) 64.0 Lymph % (Auto) 20.1 [place] % (Auto) 8.5 Eos % (Auto) 6.2 Baso % (Auto) 1.1 Neut # (Auto) 6.25 Lymph # (Auto) 1.96 [place] # (Auto) 0.83 H Eos # (Auto) 0.61 H Baso # (Auto) 0.11 Immature Gran # (Auto) 0.01 PT INR APTT PTT Ratio Sodium 137 Potassium 4.9 Chloride 102 Carbon Dioxide 25 Anion Gap 10.0 BUN 73 H Creatinine 7.83 H* D Est Cr Clr Drug Dosing 10.7 Est GFR ( Amer) 7.5 Est GFR (Non-Af Amer) 6.5 BUN/Creatinine Ratio 9.3 L Glucose 90 Lactate Calcium 8.9 Magnesium Total Bilirubin 0.6 AST 14 L ALT 18 Alkaline Phosphatase 114 Troponin I Total Protein 6.9 Albumin 3.5 Globulin 3.4 Albumin/Globulin Ratio 1.0 Procalcitonin Urine Color Urine Appearance Urine pH Ur Specific [place] Urine Protein Urine Glucose (UA) Urine Ketones Urine Blood Urine Nitrite Urine Bilirubin Urine Urobilinogen Ur Leukocyte Esterase Urine WBC (Auto) Urine RBC (Auto) U Hyaline Cast (Auto) U Epithel Cells (Auto) Urine Bacteria (Auto) Random Vancomycin 32.8 COVID-19 Eval Order SARS-CoV-2, RNA, NAAT Blood Type Antibody Screen PG Care Time/CCT Total # of Minutes Spent Total Time Spent with Patient: Total time spent is greater than 50% in coordination of care (as documented) at patient's floor/unit and/or counseling patient: Coding Level of Care Code 55233 Inpt Consult Level 4 Diagnoses ESRD on dialysis N18.6; Z99.2 Infection, dialysis vascular access T82.7XXA Encounter type: initial encounter Anemia D64.9 Chronic kidney disease stage: on chronic dialysis Hypertension I10 (1) Anemia Chronic kidney disease stage: on chronic dialysis (2) Infection, dialysis vascular access Encounter type: initial encounter Qualified Code(s): T82.7XXA - Infection and inflammatory reaction due to other cardiac and vascular devices, implants and grafts, initial encounter
[2020-10-07] MEDS: NEPHROCAPS PO SCH (12:15)
[2020-10-07] MEDS ORDERED: CEFEPIME 1,000 MG in SYRINGE 0 ML IV SCH (16:00)
--- NOTE | 2020-10-07 21:12 | Hospitalist Progress Note ---
Date of Service October 07, 2020 Assessment & Plan (1) Cellulitis: 65 yo M with hx ESRD on dialysis, CVA, CAD, DM2, HTN, Anemia admitted for concern of cellulitis and possible dialysis catheter infection. Cellulitis - appears to be an exit site infection. D/W nephro does not need to remove catheter. will continue with antibiotics. will monitor. erythema appears to be decreased. (2) ESRD on dialysis: Patient had dialysis today. TTS (3) Anemia: Epogen 89102 units with HD today. (4) Hypertension: Remains on lisinopril and amlodipine per home Rx. BP acceptable. Volume status euvolemic. (5) Diabetes: A1c 5.21 august 2020 diet controlled (6) Elevated troponin: Elevated troponin most likely secondary to ESRD. 0.072, less than previous recordings of 0.114. no complaints of chest pain EKG without changes DVT ppx: chemical contraindicated with hx brain aneurysm, up walking Q4H and SCDs while in bed FEN/GI: dialysis diet, oral fluids Code Status: Full Code Dispo: Med/Surg with Tele Admission and Anticipated Discharge Date Admission Date: October 06, 2020 Subjective Patient reports doing well. He has no new complaints. Review of Systems Review of Systems: All systems reviewed & are unremarkable except as noted in HPI & below Physical Exam Physical Exam: Constitutional: obese, in no apparent distress, sitting comfortably in bed. Eyes: EOMI, pupils equal and reactive bilaterally, no scleral icterus Cardiac: RRR, no murmurs, gallops or rubs. Normal S1, S2 Pulm: CTA BL, no wheezes, rhonchi, crackles or rubs, moving air well throughout both lungs Abd: soft, nontender, nondistended, normal bowel sounds, no rebound or guarding Extremities: 2+ peripheral pulses, no edema, venous stasis changes bilaterally over shins Neuro: no focal deficits, moving all 4 limbs, A&Ox3 Skin: Dialysis port on right upper chest in place with surrounding erythema, thickening skin, nontender, not warm to touch, some dried drainage on gauze Results & Data Results & Data ([facility]) Vital Signs (Past 12 Hours) Vital Signs Temp Pulse Pulse Resp BP BP 10/07/20 16:00 36 C L 70 16 142/83 H 10/07/20 15:20 73 132/78 10/07/20 15:00 75 134/75 10/07/20 14:40 73 138/80 10/07/20 14:20 74 138/84 10/07/20 14:01 75 126/71 10/07/20 13:40 74 125/74 10/07/20 13:25 79 125/80 10/07/20 13:04 74 130/81 10/07/20 12:40 75 134/78 10/07/20 12:20 75 131/57 L 10/07/20 11:56 69 144/80 H 10/07/20 11:40 36.7 C 69 PG Care Time/CCT Total # of Minutes Spent Total Time Spent with Patient: Total time spent is greater than 50% in coordination of care (as documented) at patient's floor/unit and/or counseling patient: Coding Level of Care Code 64611 Subseq Obs Care Lvl 3 Diagnoses Cellulitis L03.90 Site of cellulitis: unspecified site ESRD on dialysis N18.6; Z99.2 Anemia D64.9 Chronic kidney disease stage: on chronic dialysis Hypertension I10 Diabetes E11.9 Elevated troponin R77.8 Time Spent (min) 35 (1) Anemia Chronic kidney disease stage: on chronic dialysis (2) Cellulitis Site of cellulitis: unspecified site Qualified Code(s): L03.90 - Cellulitis, unspecified
[2020-10-07] MEDS: SIMVASTATIN 10 MG TAB PO SCH (21:24)
[2020-10-07] MEDS: lisinopril 10 MG TAB PO SCH (21:24)
--- NOTE | 2020-10-08 05:58 | Electrocardiogram Report ---
Test Reason : Blood Pressure : / mmHG Vent. Rate : 084 BPM Atrial Rate : 084 BPM P-R Int : 196 ms QRS Dur : 104 ms QT Int : 392 ms P-R-T Axes : 036 022 012 degrees QTc Int : 463 ms Normal sinus rhythm Inferior infarct (cited on or before 31-AUG-2020) Poor R wave progression, consider anterior [place] vs. lead placement vs. LVH Abnormal ECG When compared with ECG of 31-AUG-2020 16:09, Anterolateral T wave abnormality has improved Confirmed by Sam Zavala ([id number]) on 10/08/2020 5:58:19 AM Referred By: REFERRED SELF Confirmed By:Sam Zavala
[2020-10-08] MEDS: CALCIUM ACETATE 667 MG CAP/TAB PO SCH ×2 (08:11→12:11)
[2020-10-08] MEDS: NEPHROCAPS PO SCH (08:11)
[2020-10-08] MEDS: amLODIPine BESYLATE 5 MG TAB PO SCH (08:12)
[2020-10-08 08:39] LABS: Basophils # (auto) 0.08 K/uL (0-0.2); Eosinophils # (auto) 0.51 K/uL (0-0.5); Eosinophils % (auto) 6.7 %; Hematocrit (blood only) 28.2 % (42-52); Hemoglobin 9.1 g/dL (14.0-18.0); Immature Granulocytes # (auto) 0.01 K/uL (0.00-0.02); Immature Granulocytes % (auto) 0.1 %; Lymphocytes # (auto) 1.24 K/uL (1.2-3.4); Lymphocytes % (auto) 16.2 %; Mean Corpuscular Hemoglobin 31.9 pg (25-34); Mean Corpuscular Hgb Conc 32.3 g/dL (32-36); Mean Corpuscular Volume 98.9 fL (80-100); Mean Platelet Volume 9.1 fL (7.4-10.4); Monocytes # (auto) 0.74 K/uL (0.11-0.59); Monocytes % (auto) 9.7 %; Neutrophils # (auto) 5.06 K/uL (1.4-6.5); Neutrophils % (auto) 66.3 %; Platelet Count 305 K/uL (130-400); RDW Coefficient of Variation 17.4 % (11.5-14.5); RDW Standard Deviation 62.9 fL (36.4-46.3); Red Blood Count 2.85 M/uL (4.7-6.1); White Blood Count 7.64 K/uL (4.8-10.8)
--- NOTE | 2020-10-08 09:02 | Pharmacy Report ---
Pharmacy Abx Dose Short Note - Date of Service October 08, 2020 - Assessment & Plan Assessment * 65 year old M receiving empiric vancomycin and cefepime for treatment of possible HD catheter infection/cellulitis * ESRD on HD (TuThSa) - patient completed 3.5 hours yesterday, with likely continuation of TuThSa schedule per nephro note yesterday * UOP significant for HD patient, at 825 mL yesterday * Blood cultures from 10/06 - NGTD Vancomycin * Goal vancomycin pre-HD level 15-20 mcg/mL * Level fell from 32.8 to 24.7 mcg/mL as expected after 3.5 hour HD session yesterday * Although UOP significant for HD patient, level is not likely to fall subtherapeutic without HD. Therefore no further vanco today * Will order a pre-HD level for tomorrow AM, which will also help determine patient-specific clearance of vanco without HD Plan * No additional vanco today * Random vancomycin level with AM labs tomorrow Pharmacy will continue to follow and will adjust dose/frequency as necessary. Thank you.
[2020-10-08 09:59] LABS: BUN Creatinine Ratio 7.4 (10-20); Calcium 8.6 mg/dl (8.5-10.1); Creatinine Clr Calc Pharmacy 13.6 ml/min; Est GFR (African American) 10.1; Est GFR (Non-African American) 8.7; Potassium 5.5 mmol/L (3.5-5.1)
--- NOTE | 2020-10-08 13:24 | Consultation ---
Date of Consultation October 08, 2020 Assessment & Plan (1) Infection, dialysis vascular access: This patient has mild cellulitis with some slight drainage around the exit site. Most likely this occurred when he was keeping his dressing moist. He does not have an elevated white count and he does not have a fever. There is no tenderness along the catheter site. I believe at this time he can be treated with antibiotics orally. We will follow him up in 1 week in the office to recheck the exit site. Thank you very much for letting us participate in the care of this patient. Encounter type: initial encounter Qualified Code(s): T82.7XXA - Infection and inflammatory reaction due to other cardiac and vascular devices, implants and grafts, initial encounter History of Present Illness Reason for Consultation: Infected exit site of PermCath Attending Physician: Celio Green History of Present Illness This is a 65-year-old male who has a PermCath in place the right internal jugular with exit in the anterior chest wall. He is developed drainage around the catheter exit site with some induration and redness. He was admitted for antibiotic therapy and work-up with blood cultures. Blood cultures have been negative to this point. Allergies Allergy/AdvReac Type Severity Reaction Status Date / Time No Known Allergies Allergy Verified 10/06/20 16:38 Home Medications Medication Instructions Recorded Confirmed Type B complex with C 20-folic acid 1 cap PO QAM #30 cap 09/04/20 10/06/20 Rx [Renal Caps] acetaminophen 650 mg PO Q4H PRN #0 tab 09/04/20 10/06/20 Rx lisinopril 10 mg PO HS #30 tab 09/04/20 10/06/20 Rx amlodipine 5 mg PO BID 10/06/20 10/06/20 History calcium acetate(phosphat bind) 1,334 mg PO .WITH SNACKS 10/06/20 10/06/20 History calcium acetate(phosphat bind) 2,001 mg PO TIDM 10/06/20 10/06/20 History simvastatin 10 mg PO HS 10/06/20 10/06/20 History Patient History Medical History Anemia Patient has received 2 units pRBC's this admission. Brain aneurysm Chronic renal impairment, stage 4 (severe) Coronary artery disease involving [place] coronary artery of [place] heart ESRD (end stage renal disease) History of CVA (cerebrovascular accident) Hypertension Macular degeneration Mixed hyperlipidemia Screen for colon cancer Screening for prostate cancer Type 2 diabetes mellitus, without long-term current use of insulin Surgical History H/O inguinal hernia repair Family History Father Prostate cancer Liver cancer Social History Smoking Status: Former smoker Tobacco Type: Cigarettes Second Hand Exposure: No; Hx Alcohol Use: No Hx Substance Use: No Preferred Language: Swedish Communication Ability: Effective Critical Care Nurse Practitioner Required: No Beliefs That Will Affect Care: None marital status: Single Current Living Situation: Alone Feels Safe at Home: Yes Safety Concerns: Feels Safe At This Time caffeine: No Assistive Devices: None Review of Systems Review of Systems: All systems reviewed & are unremarkable except as noted in HPI & below Physical Exam Constitutional: well developed and well nourished Chest (Breasts): Additional Comments: Exit site slightly indurated with mild cellulitis. No drainage was noted on exam today. There is no tenderness palpated along the catheter site. Psychiatric: Orientation: alert and oriented x 3 Results & Data ([facility]) Vital Signs (Past 12 Hours) Vital Signs Temp Pulse Resp BP Pulse Ox 10/08/20 07:54 37.2 C 69 17 139/77 97
--- NOTE | 2020-10-08 13:33 | Billing Data ---
Date of Service October 06, 2020 Coding Level of Care Code 63228 OBS Care - Level 2
--- NOTE | 2020-10-08 15:59 | Nephrology Progress Note ---
Date of Service October 08, 2020 Assessment & Plan (1) ESRD on dialysis: TTS. Roselyn Kent (3.5 hrs Qb 400; EDW 96.5 kg). BP and volume status acceptable. HD completed yesterday per scheduled without complications. Resume Rx at [facility] tomorrow post discharge. BP and volume status acceptable. Electrolytes controlled. Renal diet. Phoslo QAC. Medications appropriate for kidney function. (2) Infection, dialysis vascular access: No systemic signs/symptoms of infection. Exit site infection. Blood culture pending. No emergent need for catheter removal. US pending. I discussed the plan of care for home today with PO abx with Dr. Green and Mishel. (3) Anemia: Epogen 99320 units with HD yesterday. (4) Hypertension: Remains on lisinopril and amlodipine per home Rx. BP acceptable. Volume status euvolemic. Admission and Anticipated Discharge Date Admission Date: October 06, 2020 Subjective No acute events overnight. Collin was seen and evaluated in his hospital room this morning. No fevers or chills. No discomfort at catheter exit site. I discussed the plan of care with Dr. Green and Dr. Florentino. Review of Systems Review of Systems: All systems reviewed & are unremarkable except as noted in HPI & below Physical Exam Constitutional: well developed; no acute distress Eyes: no scleral abnormality and no corneal abnormality ENMT: Mouth: no oral mucosal abnormality and oral mucous membranes not dry Neck: normal visual inspection and trachea midline Respiratory: normal respiratory effort Auscultation: lungs clear to auscultation bilaterally Cardiovascular: Rate/Rhythm: regular rate Heart Sounds: normal S1 and normal S2 Extremities: no edema Musculoskeletal: Extremities: no cyanosis and no clubbing Skin: normal turgor; no lesions Neurologic: Motor/Sensory: no tremor and no asterixis Psychiatric: Orientation: alert and oriented x 3 Results & Data ([facility]) Vital Signs (Past 12 Hours) Vital Signs Temp Pulse Pulse Pulse Resp BP Pulse Ox 10/08/20 15:08 37.2 C 76 70 66 17 136/74 98 10/08/20 14:36 37.2 C 70 17 136/74 98 10/08/20 07:54 37.2 C 69 17 139/77 97 Laboratory Results Laboratory Results - last 24 hr 10/08/20 10/08/20 10/08/20 06:07 08:22 08:22 WBC 7.64 RBC 2.85 L Hgb 9.1 L Hct 28.2 L MCV 98.9 MCH 31.9 MCHC 32.3 RDW Std Deviation 62.9 H RDW Coeff of Leonor 17.4 H Plt Count 305 MPV 9.1 Immature Gran % (Auto) 0.1 Neut % (Auto) 66.3 Lymph % (Auto) 16.2 [place] % (Auto) 9.7 Eos % (Auto) 6.7 Baso % (Auto) 1.0 Neut # (Auto) 5.06 Lymph # (Auto) 1.24 [place] # (Auto) 0.74 H Eos # (Auto) 0.51 H Baso # (Auto) 0.08 Immature Gran # (Auto) 0.01 Sodium 136 Potassium 5.5 H Chloride 103 Carbon Dioxide 25 Anion Gap 8.0 BUN 45 H Creatinine 6.15 H* D Est Cr Clr Drug Dosing 13.6 Est GFR ( Amer) 10.1 Est GFR (Non-Af Amer) 8.7 BUN/Creatinine Ratio 7.4 L Glucose 86 Calcium 8.6 Procalcitonin Specimen Hemolysis Random Vancomycin 24.7 10/08/20 08:22 WBC RBC Hgb Hct MCV MCH MCHC RDW Std Deviation RDW Coeff of Leonor Plt Count MPV Immature Gran % (Auto) Neut % (Auto) Lymph % (Auto) [place] % (Auto) Eos % (Auto) Baso % (Auto) Neut # (Auto) Lymph # (Auto) [place] # (Auto) Eos # (Auto) Baso # (Auto) Immature Gran # (Auto) Sodium Potassium Chloride Carbon Dioxide Anion Gap BUN Creatinine Est Cr Clr Drug Dosing Est GFR ( Amer) Est GFR (Non-Af Amer) BUN/Creatinine Ratio Glucose Calcium Procalcitonin 0.36 Specimen Hemolysis Random Vancomycin PG Care Time/CCT Total # of Minutes Spent Total Time Spent with Patient: Total time spent is greater than 50% in coordination of care (as documented) at patient's floor/unit and/or counseling patient: Coding Level of Care Code 34689 Subseq Hosp Care Lvl 3 Diagnoses ESRD on dialysis N18.6; Z99.2 Infection, dialysis vascular access T82.7XXA Encounter type: initial encounter Anemia D64.9 Chronic kidney disease stage: on chronic dialysis Hypertension I10 (1) Infection, dialysis vascular access Encounter type: initial encounter Qualified Code(s): T82.7XXA - Infection and inflammatory reaction due to other cardiac and vascular devices, implants and grafts, initial encounter (2) Anemia Chronic kidney disease stage: on chronic dialysis
--- NOTE | 2020-10-15 10:33 | Discharge Summary ---
Date of Service October 08, 2020 Admission HPI Per Admitting Provider 65yo M with PMH HTN, Brain aneurysm, diet controlled DM2, CVA, CAD, ESRD on Dialysis with port placement 1 mo ago, in ER today for concern of infection of dialysis port. States he had dialysis yesterday (goes T,TH,S) and noticed this morning that there appeared to be brown seepage from the catheter site. Says there was also redness around the area but denies any localized tenderness. Has not otherwise had any issues with the port since placement. No recent fevers, chills, weakness, chest pain, sob, nausea, vomiting Principal Diagnosis superficial infection near dialysis vascular access Discharge Exam Constitutional: obese, in no apparent distress, sitting comfortably in bed. Eyes: EOMI, pupils equal and reactive bilaterally, no scleral icterus Cardiac: RRR, no murmurs, gallops or rubs. Normal S1, S2 Pulm: CTA BL, no wheezes, rhonchi, crackles or rubs, moving air well throughout both lungs Abd: soft, nontender, nondistended, normal bowel sounds, no rebound or guarding Extremities: 2+ peripheral pulses, no edema, venous stasis changes bilaterally over shins Neuro: no focal deficits, moving all 4 limbs, A&Ox3 Skin: Dialysis port on right upper chest in place no longer showing surrounding erythema. It is nontender, not warm to touch. No drainage noted. Discharge Data Allergies Allergy/AdvReac Type Severity Reaction Status Date / Time No Known Allergies Allergy Verified 10/06/20 16:38 Consultations 10/06/20 16:22 ED Decision to Admit Stat 10/06/20 19:48 Consult Nephrology Routine 10/07/20 09:25 Consult Vascular Surgery Routine Ordered Studies 10/07/20 11:00 venous mapping UE BI Routine Hospital Course (1) Cellulitis: 65 yo M with hx ESRD on dialysis, CVA, CAD, DM2, HTN, Anemia admitted for concern of cellulitis and possible dialysis catheter infection. Cellulitis - appears to be an exit site infection. D/W nephro does not need to remove catheter. -will continue with antibiotics. -will monitor. -erythema appears to be decreased. -will continue PO antibiotics for the short term. (2) ESRD on dialysis: Patient had dialysis today. TTS (3) Anemia: Epogen 56808 units with HD today. (4) Hypertension: Remains on lisinopril and amlodipine per home Rx. BP acceptable. Volume status euvolemic. (5) Diabetes: A1c 5.21 august 2020 diet controlled (6) Elevated troponin: Elevated troponin most likely secondary to ESRD. 0.072, less than previous recordings of 0.114. no complaints of chest pain EKG without changes e Total Time Total Time Spent Total Time Spent (In Minutes): 32 Total Time Includes: Examination of the Patient, Discharge Planning and Medication Reconciliation Discharge Plan Discharge Items Patient Disposition: Home - Self-Care Reason For Visit: DIALYSIS CATHETER-RELATED INFECTION Discharge Diagnosis: dialysis Activity: Resume your previous activity Non-emergency contact: Primary Care Provider Call non-emergency contact if: you have any medication questions Follow-up/Referrals: Otto Machuca DO [Primary Care Provider] - 10/18/20 2:30 pm Aquiles Florentino MD [Physician] - (Follow up appointment in one week after discharge. Call [phone] to schedule) Diet: Dialysis Renal Addtl Attending Provider Instructions: You have been hospitalized for an acute medical problem. During your stay at [facility], we have made an effort to correct the problem that brought you to the hospital while keeping you as comfortable as possible. Medications were used to bring your condition under control and your discharge instructions will include directions for any medications you should take after leaving the hospital. Please make sure you see your Primary Care Provider as part of your follow up plan. Pending Studies at Discharge: No Stand-Alone Forms: My [facility], Smoking Cessation Medications and DC Order Prescriptions: Continued lisinopril 10 mg Tablet 10 mg PO HS Qty: 30 RF: 0 Renal Caps 1 mg Capsule 1 cap PO QAM Qty: 30 RF: 0 acetaminophen 325 mg Tablet 650 mg PO Q4H PRN (Reason: pain) Qty: 0 RF: 0 simvastatin 10 mg tablet 10 mg PO HS RF: 0 amlodipine 5 mg tablet 5 mg PO BID RF: 0 calcium acetate(phosphat bind) 667 mg capsule 1,334 mg PO .WITH SNACKS RF: 0 calcium acetate(phosphat bind) 667 mg capsule 2,001 mg PO TIDM RF: 0 Discharge Orders: Discharge Order (Routine); Ordered 10/08/20 Ordered By: Celio Gibbs/Other Patient Handouts: ED Cellulitis Admission Data Admit Date/Time: 10/06/20 18:00 Attending Provider: Celio Green Admit Provider: Abhilash Bradley Primary Care Provider: Otto Machuca Other Providers: Abhilash Bradley ; Sushant Serrano ; Aquiles Florentino Other Interventions: Discharge Summary Assessment (RN) Last Done: 10/08/20 15:08 Coding Level of Care Code 33657 OBS Care - Discharge Diagnoses Cellulitis L03.90 Site of cellulitis: unspecified site ESRD on dialysis N18.6; Z99.2 Anemia D64.9 Chronic kidney disease stage: on chronic dialysis Hypertension I10 Diabetes E11.9 Elevated troponin R77.8
== END 2020-10-08 15:55 | disposition home or self-care (01) ==
LOC: ED 14:47 → 3W 14:47 → SUATTDRO 18:00 → 3W 18:48

== ENCOUNTER 2020-10-27 13:35 | Observation (INO) ==
--- NOTE | 2020-10-22 10:47 | PAT Medication Instructions ---
Medication Instructions Date of Service October 22, 2020 Home Medications Medication Instructions Recorded Renal Caps 1 cap PO QAM #30 cap 09/04/20 acetaminophen 650 mg PO Q4H PRN #0 tab 09/04/20 lisinopril 10 mg PO HS #30 tab 09/04/20 Renal Caps 1 cap PO QAM acetaminophen 650 mg PO Q4H PRN lisinopril 10 mg PO HS amlodipine 5 mg PO BID calcium acetate(phosphat bind) 1,334 mg PO .WITH SNACKS calcium acetate(phosphat bind) 2,001 mg PO TIDM simvastatin 10 mg PO HS DO NOT take the morning of surgery calcium acetate(phosphat bind) 1,334 mg PO .WITH SNACKS calcium acetate(phosphat bind) 2,001 mg PO TIDM Renal Caps 1 cap PO QAM Take morning of surgery With a small sip of water, OTHERWISE NOTHING TO EAT OR DRINK AFTER MIDNIGHT: amlodipine 5 mg PO BID acetaminophen 650 mg PO Q4H PRN (okay to take up to 4 hours prior to surgery if needed) Take evening before surgery acetaminophen 650 mg PO Q4H PRN (if needed) lisinopril 10 mg PO HS amlodipine 5 mg PO BID calcium acetate(phosphat bind) 1,334 mg PO .WITH SNACKS calcium acetate(phosphat bind) 2,001 mg PO TIDM simvastatin 10 mg PO HS Other Notes If you have any questions please call us at [phone] or [phone] or [phone] or [phone]
--- NOTE | 2020-10-22 10:56 | Anesthesiology Consultation ---
Date of Service October 22, 2020 Assessment & Plan (1) Encounter for pre-operative examination: Chart Review Chart Review: Acceptable Risk for Surgery (pending preop Covid testing results and PRP DOS ) and Patient seen in Pre Admission Testing -Check PRP stat AM of surgery (on dialysis) Per PAT appointment 10/22/2020, patient denies any recent travel/large group gatherings. No known Covid infection in the past 90 days. No known Covid positive contacts or Covid related symptoms. Scheduled for preop Covid testing 10/22/20 at [facility]= will await results. Permacath placement 09/01/2020 = done under [facility]. No anesthesia issues noted per anesthesia record. Teaching & Discussion Pre-Anesthesia Teaching/Discussion Notes: Instructed NPO after midnight before surgery,except medications with 15 cc of water. Medication instructions provided according to the [facility] guidelines. History Surgery Operation Date: 10/27/20 15:20 Proposed Procedures p Right Upper Extremity Antecubital Basilic Vein Arteriovenous Fisula Creation - Aquiles Florentino MD Height/Weight Height: 5 ft 11 in Weight: 76.1 kg Allergies Allergy/AdvReac Type Severity Reaction Status Date / Time No Known Allergies Allergy Verified 10/27/20 13:59 Medications Home Medications Medication Instructions Recorded Confirmed Last Taken Renal Caps 1 cap PO QAM #30 cap 09/04/20 10/27/20 10/26/20 07:00 acetaminophen 650 mg PO Q4H PRN #0 tab 09/04/20 10/27/20 Unknown lisinopril 10 mg PO HS #30 tab 09/04/20 10/27/20 Unknown amlodipine 5 mg PO BID 10/06/20 10/27/20 10/27/20 08:00 calcium acetate(phosphat bind) 1,334 mg PO .WITH SNACKS 10/06/20 10/27/2005/10 15:00 calcium acetate(phosphat bind) 2,001 mg PO TIDM 10/06/20 10/27/20 10/19/20 15:00 simvastatin 10 mg PO HS 10/06/20 10/27/20 10/20/20 08:00 Active Medications Generic Name Dose Route Start Last Admin Trade Name Freq PRN Reason Stop Dose Admin Sodium Chloride 1,000 mls @ 15 mls/hr 10/27/20 06:00 10/27/20 14:22 Nss 1000ml IV 10/28/20 05:59 15 mls/hr .Q24H MAIA Administration Past Medical History Medical History Anemia received 2 units pRBC's at [facility] during Aug 2020 admission Brain aneurysm 16 yrs ago> ruptured> doesn't have to see neuro anymore> no further issues No surgical intervention needed Coronary artery disease involving holy cross coronary artery of holy cross heart Questionable- had inferior infarct on previous EKGs. No stents or CABG. No hx of previous stress test or issues ESRD (end stage renal disease) dialysis Tu//Sat > [facility] [place] History of CVA (cerebrovascular accident) Pt denies 16 yrs ago> symptoms related to brain aneurysm, not stroke No residual deficits Hypertension Macular degeneration Only to right eye Mixed hyperlipidemia Type 2 diabetes mellitus, without long-term current use of insulin Diet control per pt, no meds Does not check glucose routinely Exercise / Class Metabolic Activity III < 4 Walking/Shop/Light housework (no chest pain or SOB with flat surface ambulation ) Past Family History Family History Father Liver cancer Prostate cancer Brother Colon cancer Past Surgical History Surgical History H/O inguinal hernia repair History of vascular access device dialysis port placed to right chest Aug 2020 [facility], later got infected, was ad mitted at [facility] Sep 2020. Port removed, new one placed to left chest on 10/15/20 [place] teeth extracted Past Anesthesia History No Hx of Anesthesia Complications and No Family Hx of Anesthesia Complications History of PONV No Hx of PONV and No Hx of Motion Sickness Social History Smoking Status: Former smoker tobacco type: cigarettes Do You Dip or Chew Tobacco: No Smoking End Date: high school Hx Alcohol Use: No Hx Substance Use: No substance use type: does not use Review of Systems Patient denies chest pain, shortness of breath, dyspnea on exertion, reflux, cough, wheezing, palpitations. No hx of seizures, DC, apnea/snoring (but lives alone). No hx of blood clots. Physical Exam Vital Signs Last Vital Signs Temp 36.6 C 10/27/20 14:05 Pulse 73 10/27/20 14:05 Resp 20 10/27/20 14:05 BP 151/88 H 10/27/20 14:05 Pulse Ox 99 10/27/20 14:05 VITALS BP 134/78 P 81 TEMP 97.5 SP02 100% RESP 16 Constitutional no acute distress ENMT Mouth: no TMJ clicking Thyromental Distance: > or= 3.5 Finger Breadths (3.5) Mallampati Class: III Missing molars Neck + limited neck extension (mild ) Respiratory normal respiratory effort; no respiratory distress Auscultation: lungs clear to auscultation bilaterally; no wheezes Cardiovascular Rate/Rhythm: regular rate and regular rhythm Heart Sounds: no murmur Vessels: no carotid bruit Musculoskeletal Spine: no pain with cervical ROM Extremities: extremities normal to inspection Psychiatric Orientation: alert Testing Laboratory Results 10/22/20 11:43 10/27/20 13:49 PT 10.8 Seconds (9.0-12.0) 10/22/20 11:43 INR 1.1 (0.9-1.1) 10/22/20 11:43 APTT 23.6 Seconds (21.0-31.0) 10/22/20 11:43 10/27/20 13:52 POC Glucose 96 Anemia stable from previous 09/01/20= HGB A1C= 5.2 Electrocardiogram Date: 10/22/20 Sinus rhythm with first-degree AV block at 71 bpm. Otherwise normal EKG per cardio. Chest X-Ray Date: 10/22/20 Findings: + NAD and + cardiomegaly Mild hyperinflation with diaphragmatic flattening. No pneumothorax, pleural effusion, airspace consolidation or overt pulmonary edema.
[2020-10-22 12:11] LABS: Basophils # (auto) 0.09 K/uL (0-0.2); Basophils % (auto) 1.1 %; Eosinophils # (auto) 0.47 K/uL (0-0.5); Hematocrit (blood only) 28.4 % (42-52); Hemoglobin 9.4 g/dL (14.0-18.0); Immature Granulocytes # (auto) 0.01 K/uL (0.00-0.02); Immature Granulocytes % (auto) 0.1 %; Lymphocytes # (auto) 1.55 K/uL (1.2-3.4); Lymphocytes % (auto) 19.8 %; Mean Corpuscular Hgb Conc 33.1 g/dL (32-36); Mean Corpuscular Volume 99.6 fL (80-100); Mean Platelet Volume 9.6 fL (7.4-10.4); Monocytes # (auto) 0.99 K/uL (0.11-0.59); Monocytes % (auto) 12.6 %; Neutrophils # (auto) 4.73 K/uL (1.4-6.5); Neutrophils % (auto) 60.4 %; Platelet Count 330 K/uL (130-400); RDW Coefficient of Variation 16.1 % (11.5-14.5); RDW Standard Deviation 59.2 fL (36.4-46.3); Red Blood Count 2.85 M/uL (4.7-6.1); White Blood Count 7.84 K/uL (4.8-10.8)
[2020-10-22 12:17] LABS: INR 1.1 (0.9-1.1); Partial Thromboplastin Ratio 0.9; Partial Thromboplastin Time 23.6 Seconds (21.0-31.0); Prothrombin Time 10.8 Seconds (9.0-12.0)
--- NOTE | 2020-10-22 12:20 | XRay Report ---
XR chest Pre-admission PA/Lat HISTORY: 65 years-old Male pat preoperative exam. No acute chest complaints COMPARISON: Chest radiograph 10/06/2020 TECHNIQUE: PA and lateral views of the chest FINDINGS: Cardiac silhouette is mildly enlarged. Dual-lumen hemodialysis left IJ central venous catheter distal tip terminates in the expected location of the brachiocephalic SVC confluence. Calcified plaque of t he thoracic aorta. Mild hyperinflation with diaphragmatic flattening. No pneumothorax, pleural effusi on, airspace consolidation or overt pulmonary edema. Degenerative changes of the shoulders and spine. IMPRESSION: Cardiomegaly without acute process. ACT 112: Negative or not required by law. The above report was generated using voice recognition software. It may contain grammatical, syntax o r spelling errors. Electronically signed by: Sean Bansal M.D. 10/22/2020 12:18 PM
--- NOTE | 2020-10-22 12:41 | Electrocardiogram Report ---
Test Reason : Blood Pressure : / mmHG Vent. Rate : 071 BPM Atrial Rate : 071 BPM P-R Int : 218 ms QRS Dur : 106 ms QT Int : 428 ms P-R-T Axes : 059 068 033 degrees QTc Int : 465 ms Sinus rhythm with 1st degree A-V block Otherwise normal ECG When compared with ECG of 06-OCT-2020 15:11, Criteria for Inferior infarct are no longer Present Confirmed by Kev Blackman ([id number]) on 10/22/2020 12:41:17 PM Referred By: Aquiles Florentino Confirmed By:Kev Blackman
[2020-10-22 12:55] LABS: Calcium 9.5 mg/dl (8.5-10.1); Creatinine Clr Calc Pharmacy 11.3 ml/min; Est GFR (African American) 8.9; Est GFR (Non-African American) 7.7; Potassium 4.1 mmol/L (3.5-5.1)
--- NOTE | 2020-10-27 10:05 | History & Physical Report ---
Date of Service October 27, 2020 History of Present Illness Primary Care Provider: Otto Machuca DO * Final Report * HVI OUTPATIENT NOTE Name: MICHAEL GREEN Patient Number: [id number] : 1955 Date of Service: 10/18/2020 Chief Complaint: _Visit to discuss AV fistula creation HPI: _Mr. Green is an elderly male who presents to Dr. Florentino's vascular surgery clinic today for a visit to discuss AV fistula creation. He was previously seen in [facility] by Dr. Florentino to have a PermCath inserted to begin hemodialysis. Patient had utilized his PermCath for a period of time, and then there was concern for possible infection 1 to 2 weeks ago, and he went to [facility] to have his PermCath removed and then 1 placed on the opposite side. Patient denies any fevers chills nausea vomiting or other concerns. Patient's vein mapping which was performed at [facility] prior to his original discharge indicates a usable right upper arm basilic vein for AV fistula creation. Current Home Meds: (Last Updated 10/18 15:37) amLODIPine (Norvasc 5 mg oral tablet) 5 mg PO Daily calcium acetate (PhosLo 667 mg oral capsule) 3 cap PO tid with meals, 2 caps po with snacks cloNIDine (cloNIDine 0.1 mg oral tablet) as needed for hypertension lisinopril (lisinopril 10 mg oral tablet) 10 mg PO qhs multivitamin (Renal Caps oral capsule) 1 cap PO Daily simvastatin (simvastatin 10 mg oral tablet) 10 mg PO qhs Allergies and Sensitivities: NKA Past Medical History: Problems: Dependent on hemodialysis Iron deficiency anemia Diabetes mellitus type II, controlled, with no complications Secondary hyperparathyroidism of renal origin End-stage renal disease (ESRD) Anemia in CKD (chronic kidney disease) OBJECTIVE Vitals: Last Updated 10/18/20 15:41 Date Temp BP Location Pulse RR SpO2 Pain 10/18/20 140/78 Right Arm 82 98 10/18/20 0 Vital Signs are the last 3 documented. No Orthostatic Data Available Height and Weight: Last Updated 10/18/20 15:41 Date BMI Wt(kg) Wt(lb) Method Ht(cm) (ft-in) Method 10/18/20 29.52 96 211 Standing Scale 180.34 5-11 Heights and Weights are the last 3 documented. Physical Exam _ Constitutional: In general patient is an obese but healthy-appearing well- nourished well-developed middle-aged male in no distress. He is alert and oriented without any focal deficits. Heart is regular and his lungs are decreased throughout but clear. His abdomen is protuberant due to body habitus, but is soft and nontender with normoactive bowel sounds. Brachial and radial pulses are +3. Femoral pulses are +2. Extremities a pulses are +1 DP and nonpalpable PTs. He has brisk capillary refill no sign of distal ischemia. ASSESSMENT: _ PLAN: _ 1 ) _end-stage renal disease on hemodialysis This point we recommend patient undergo right antecubital brachiobasilic AV fistula creation. Patient is aware that this will require a second stage transposition surgery after maturation of his fistula. The procedure risks benefits and alternatives were discussed with the patient by Dr. Florentino in the office today. Patient expressed understanding and agreement to proceed. Patient advised to call our office with any other questions or concerns. Thank you for letting us participate in the care of this patient. Signature Line Electronic Signature on File CC: Jean Marie Dick MD [address] [place] [address] [address] [facility] [id number] * CC: Otto Machuca DO [address] [facility] [id number] * Electronically Reviewed/Signed by: Shadia Fofana PA-C Author Signature Dt/Tm:10/18/2020 04:41 PM [facility] [address] [address] Electronically Reviewed/Signed by: MD Ace Cerratoigner Signature Dt/Tm: 10/19/2020 12:41 PM Motion Study Technician [facility] [address] [id number] LM Result Type: HVI Outpt Note Date of Service: October 18, 2020 16:17 EST Authorization Status: Final Author or Import Date: WILIAN Fofana Lynn on October 18, 2020 16:41 EST Verified By: MD Mishel, Aquiles Mendoza on October 19, 2020 12:41 EST Encounter info: [id number], [facility], Clinic, 10/18/2020 - 10/18/2020 Allergies Allergy/AdvReac Type Severity Reaction Status Date / Time No Known Allergies Allergy Verified 10/22/20 07:33 Home Medications Medication Instructions Recorded Confirmed Type Renal Caps 1 cap PO QAM #30 cap 09/04/20 10/22/20 Rx acetaminophen 650 mg PO Q4H PRN #0 tab 09/04/20 10/22/20 Rx lisinopril 10 mg PO HS #30 tab 09/04/20 10/22/20 Rx amlodipine 5 mg PO BID 10/06/20 10/22/20 History calcium acetate(phosphat bind) 1,334 mg PO .WITH SNACKS 10/06/20 10/22/20 History calcium acetate(phosphat bind) 2,001 mg PO TIDM 10/06/20 10/22/20 History simvastatin 10 mg PO HS 10/06/20 10/22/20 History Past Med/Surg History Medical History (Updated 10/22/20 @ 11:47 by Namita Mcknight PA-C) Anemia received 2 units pRBC's at [facility] during Aug 2020 admission Brain aneurysm 16 yrs ago> ruptured> doesn't have to see neuro anymore> no further issues No surgical intervention needed Coronary artery disease involving [place] coronary artery of [place] heart Questionable- had inferior infarct on previous EKGs. No stents or CABG. No hx of previous stress test or issues ESRD (end stage renal disease) dialysis Tues//Sat > [facility] in [place] History of CVA (cerebrovascular accident) Pt denies 16 yrs ago> symptoms related to brain aneurysm, not stroke No residual deficits Hypertension Macular degeneration Only to right eye Mixed hyperlipidemia Type 2 diabetes mellitus, without long-term current use of insulin Diet control per pt, no meds Does not check glucose routinely Surgical History H/O inguinal hernia repair History of vascular access device dialysis port placed to right chest Aug 2020 [facility], later got infected, was admitted at [facility] Sep 2020. Port removed, new one placed to left chest on 10/15/20 [place] teeth extracted Family History Father Liver cancer Prostate cancer Brother Colon cancer Social History Smoking Status: Former smoker Tobacco Type: Cigarettes Smoking End Date: high school; Second Hand Exposure: No; Do You Dip or Chew Tobacco: No; Tobacco Cessation Education Requested by Patient: No Hx Alcohol Use: No Hx Substance Use: No Preferred Language: Bengali Communication Ability: Effective Certified Emergency Vehicle Technician Required: No Beliefs That Will Affect Care: None marital status: Single Current Living Situation: Alone Other Information That Helps Us Care for You: No Feels Safe at Home: Yes Safety Concerns: Feels Safe At This Time caffeine: No Assistive Devices: Glasses Review of Systems All systems reviewed & are unremarkable except as noted in HPI & below
[~2020-10-27 13:35] MED LIST: SODIUM CHLORIDE 0.9% 1000ML 1,000 ML IV SCH; ceFAZolin 2000MG 2,000 MG/15 ML SYR IV SCH
[2020-10-27 14:28] LABS: BUN Creatinine Ratio 7.5 (10-20); Calcium 9.4 mg/dl (8.5-10.1); Creatinine Clr Calc Pharmacy 11.7 ml/min; Est GFR (African American) 8.1; Potassium 4.7 mmol/L (3.5-5.1)
[2020-10-27] MEDS ORDERED: BUPIVACAINE/EPINEPHRINE 0.5% MPF 1:200,000 30 ML VIAL ONE ×2 (14:36→20:02)
[2020-10-27] MEDS ORDERED: HEPARIN (PORCINE) 1000 UNIT/ML 10 ML (CATH LAB USE ONLY) ONE ×2 (14:36→20:02)
[2020-10-27] MEDS ORDERED: LIDOCAINE HCL 1% 20 ML VIAL ONE ×2 (14:36→20:02)
[2020-10-27] MEDS ORDERED: THROMBIN FOR SOLN 20000 UNIT KIT ONE ×2 (14:37→20:03)
[2020-10-27] MEDS ORDERED: GELATIN SPONGE 12-7MM ONE ×2 (14:37→20:03)
[2020-10-27] MEDS ORDERED: fentaNYL citrate 100 MCG/2 ML VIAL IV PRN (15:24)
[2020-10-27] MEDS ORDERED: ONDANSETRON INJ 2 MG/ML 2 ML VIAL IV PRN (15:24)
[2020-10-27] MEDS ORDERED: ATROPINE SULFATE 0.1 MG/ML 10ML SYR IV PRN (15:24)
[2020-10-27] MEDS ORDERED: ePHEDrine sulfate 50 MG/ML AMP IV PRN (15:24)
[2020-10-27] MEDS ORDERED: BUPIVACAINE 0.5 % 5 MG/1 ML MPF 30ML VIAL ONE ×2 (15:40→16:59)
[2020-10-27] MEDS ORDERED: MEPIVACAINE HCL 2% 20 ML VIAL ONE (16:36)
--- NOTE | 2020-10-27 16:36 | History & Physical Bridge Note ---
Date of Service October 27, 2020 History & Physical Bridge Note I have examined the patient, reviewed the History & Physical and in the interval since the performance of the History & Physical I have noted the following changes of clinical significance: no changes noted
[2020-10-27] MEDS ORDERED: ONDANSETRON INJ 2 MG/ML 2 ML VIAL ONE (16:46)
[2020-10-27] MEDS ORDERED: fentaNYL citrate 100 MCG/2 ML VIAL ONE (16:46)
[2020-10-27] MEDS ORDERED: MIDAZOLAM HCL 1 MG/ML 2ML VIAL ONE ×2 (16:47→17:24)
[2020-10-27] MEDS ORDERED: LIDOCAINE HCL 2% 2 ML VIAL/AMP(20MG/ML) INFIL ONE (17:36)
[2020-10-27] MEDS ORDERED: PHENYLEPHRINE 100MCG/ML 5ML SYR ONE (17:36)
[2020-10-27] MEDS ORDERED: PROPOFOL IV EMULSION 10 MG/ML 20 ML VIAL IV ONE ×4 (17:36→20:24)
[2020-10-27] MEDS ORDERED: ePHEDrine sulfate 50 MG/ML SYR ONE (17:41)
[2020-10-27] MEDS ORDERED: SURGICEL ABSORB HEMOSTAT 2IN X 14IN TOP ONE (18:18)
[2020-10-27] MEDS ORDERED: ARISTA ABSORBABLE HEMOSTAT 3GM TOP ONE (18:30)
--- NOTE | 2020-10-27 18:38 | Post Operative Brief Note ---
Immediate Post Op Note v1 Date of Surgery October 27, 2020 Pre & Post Diagnosis Operation Date: 10/27/20 15:20 Pre-Op Diagnosis: End-stage renal disease on hemodialysis Post-Op Diagnosis: End-stage renal disease on hemodialysis I identified the patient and participated in the time-out.: Yes Procedure Operation Date: 10/27/20 15:20 Actual Procedures p Arterio-venous Fisula Creation, Right Basilic Vein Creation(Right) - Aquiles Florentino MD Surgeon Aquiles Florentino MD Head Men'S Tennis Coach MD Nohemy Estimated Blood Loss 5 Findings Consistent with Post-Op Diagnosis Anesthesia Type MAC Regional Complications none Disposition Accompanied Patient To Recovery: No Disposition: Recovery Room
[2020-10-27] MEDS ORDERED: oxyCODONE/ACETAMINOPHEN 5mg/325mg TAB PO PRN ×2 (18:39→20:57)
--- NOTE | 2020-10-27 19:51 | Surgery Progress Note ---
Date of Service October 27, 2020 Subjective Patient with incisional hematoma. Recommend evacuation and control of bleeding. I have discussed the risks options and benefits of the procedure with the patient. The patient understands the risks options and benefits and agrees to the procedure. Results & Data ([facility]) Vital Signs (Past 12 Hours) Vital Signs Temp Pulse Pulse Resp BP Pulse Ox 10/27/20 19:40 65 13 143/83 H 99 10/27/20 19:30 66 21 148/82 H 99 10/27/20 19:20 65 13 146/88 H 100 10/27/20 19:10 69 17 141/84 H 100 10/27/20 19:03 36.2 C L 72 21 145/84 H 100 10/27/20 14:05 36.6 C 73 20 151/88 H 99
--- NOTE | 2020-10-27 20:11 | Anesthesiology Consultation ---
Date of Service October 27, 2020 Dr. Florentino evaluated the patient in PACU and stated that the patient needs to go back to surgery. Consent was obtained from the patient for MAC anesthesia. History Surgery Operation Date: 10/27/20 15:20 Proposed Procedures p Right Upper Extremity Antecubital Basilic Vein Arteriovenous Fisula Creation - Aquiles Florentino MD Operation Date: 10/27/20 20:00 Proposed Procedures p Arteriovenous Fistula - Aquiles Florentino MD Height/Weight Height: 5 ft 11 in Weight: 96.162 kg Allergies Allergy/AdvReac Type Severity Reaction Status Date / Time No Known Allergies Allergy Verified 10/27/20 13:59 Medications Home Medications Medication Instructions Recorded Confirmed Last Taken Renal Caps 1 cap PO QAM #30 cap 09/04/20 10/27/20 10/26/20 07:00 acetaminophen 650 mg PO Q4H PRN #0 tab 09/04/20 10/27/20 Unknown lisinopril 10 mg PO HS #30 tab 09/04/20 10/27/20 Unknown amlodipine 5 mg PO BID 10/06/20 10/27/20 10/27/20 08:00 calcium acetate(phosphat bind) 1,334 mg PO .WITH SNACKS 10/06/20 10/27/20 10/26/20 15:00 calcium acetate(phosphat bind) 2,001 mg PO TIDM 10/06/20 10/27/20 10/19/20 15:00 simvastatin 10 mg PO HS 10/06/20 10/27/20 10/20/20 08:00 oxycodone-acetaminophen [Percocet] 1 tab PO Q6H PRN #20 tab 10/27/20 Unknown Active Medications Generic Name Dose Route Start Last Admin Trade Name Freq PRN Reason Stop Dose Admin Sodium Chloride 1,000 mls @ 15 mls/hr 10/27/20 06:00 10/27/20 17:12 Nss 1000ml IV 10/28/20 05:59 15 mls/hr .Q24H MAIA Infusion NPO Date Last Intake of Fluids: 10/27/20 Time Last Intake of Fluids: 08:00 Last Intake of Fluids Comment: sip with meds Date Last Intake of Solids: 10/26/20 Time Last Intake of Solids: 15:00 Past Medical History Medical History Anemia received [address] [facility] during Aug 2020 admission Brain aneurysm 16 yrs ago> ruptured> doesn't have to see neuro anymore> no further issues No surgical intervention needed Coronary artery disease involving [place] coronary artery of [place] heart Questionable- had inferior infarct on previous EKGs. No stents or CABG. No hx of previous stress test or issues ESRD (end stage renal disease) dialysis Tues/Th/Sat > [facility] in [place] History of CVA (cerebrovascular accident) Pt denies 16 yrs ago> symptoms related to brain aneurysm, not stroke No residual deficits Hypertension Macular degeneration Only to right eye Mixed hyperlipidemia Type 2 diabetes mellitus, without long-term current use of insulin Diet control per pt, no meds Does not check glucose routinely Past Family History Family History Father Liver cancer Prostate cancer Brother Colon cancer Past Surgical History Surgical History H/O inguinal hernia repair History of vascular access device dialysis port placed to right chest Aug 2020 [facility], later got infected, was admitted at [facility] Sep 2020. Port removed, new one placed to left chest on 10/15/20 [place] teeth extracted Social History Smoking Status: Former smoker tobacco type: cigarettes Do You Dip or Chew Tobacco: No Smoking End Date: high school Hx Alcohol Use: No Hx Substance Use: No substance use type: does not use Physical Exam Vital Signs Last Vital Signs Temp 36.7 C 10/27/20 19:50 Pulse 68 10/27/20 20:05 Resp 13 10/27/20 20:05 BP 145/82 H 10/27/20 20:05 Pulse Ox 100 10/27/20 20:05 Testing Laboratory Results 10/22/20 11:43 10/27/20 13:49 PT 10.8 Seconds (9.0-12.0) 10/22/20 11:43 INR 1.1 (0.9-1.1) 10/22/20 11:43 APTT 23.6 Seconds (21.0-31.0) 10/22/20 11:43 10/27/20 10/27/20 19:08 13:52 POC Glucose 82 96 Electrocardiogram Date: 10/22/20 Sinus rhythm with first-degree AV block at 71 bpm. Otherwise normal EKG per cardio. Chest X-Ray Date: 10/22/20 Findings: + NAD and + cardiomegaly Mild hyperinflation with diaphragmatic flattening. No pneumothorax, pleural effusion, airspace consolidation or overt pulmonary edema.
[2020-10-27] MEDS ORDERED: ceFAZolin 1000MG 1,000 MG/7.5 ML SYR IV ONE (20:46)
[2020-10-27] MEDS ORDERED: ACETAMINOPHEN 325 MG TAB PO PRN (21:02)
--- NOTE | 2020-10-27 21:03 | Post Operative Brief Note ---
Immediate Post Op Note v1 Date of Surgery October 27, 2020 Pre & Post Diagnosis Operation Date: 10/27/20 15:20 Pre-Op Diagnosis: End-stage renal disease on hemodialysis Post-Op Diagnosis: End-stage renal disease on hemodialysis Operation Date: 10/27/20 20:00 Pre-Op Diagnosis: Right Arm Postoperative Hematoma Post-Op Diagnosis: Right Arm Postoperative Hematoma I identified the patient and participated in the time-out.: Yes Procedure Operation Date: 10/27/20 15:20 Actual Procedures p Arterio-venous Fisula Creation, Right Basilic Vein Creation(Right) - Aquiles Florentino MD Operation Date: 10/27/20 20:00 Actual Procedures p Evacuation of Hematoma, Control of Bleeding(Right) - Aquiles Florentino MD Surgeon Aquiles Florentino MD Pipe Bowls Paint Trimmer none Estimated Blood Loss 50 Findings Consistent with Post-Op Diagnosis Anesthesia Type MAC Complications none Disposition Accompanied Patient To Recovery: No Disposition: Recovery Room
[2020-10-27] MEDS ORDERED: CALCIUM ACETATE 667 MG CAP/TAB PO PRN (21:15)
--- NOTE | 2020-10-27 21:38 | Anesthesiology Progress Note ---
Date of Service October 27, 2020 Anesthesia Post Procedure Vital Signs Vital Signs: Temp Pulse Pulse Resp BP Pulse Ox 10/27/20 21:30 36.3 C L 67 13 147/84 H 100 10/27/20 21:20 36.3 C L 67 17 145/86 H 100 10/27/20 21:10 68 17 152/85 H 100 10/27/20 21:01 36.8 C 68 10 L 174/89 H 100 10/27/20 20:05 68 13 145/82 H 100 10/27/20 19:50 36.7 C 67 19 142/81 H 100 10/27/20 19:40 65 13 143/83 H 99 10/27/20 19:30 66 21 148/82 H 99 10/27/20 19:20 65 13 146/88 H 100 10/27/20 19:10 69 17 141/84 H 100 10/27/20 19:03 36.2 C L 72 21 145/84 H 100 10/27/20 14:05 36.6 C 73 20 151/88 H 99 Transfer of Care Handoff Completed per policy Notes Mental Status: alert / awake / arousable Patient Amnestic to Procedure: Yes Nausea / Vomiting: adequately controlled Pain: adequately controlled Airway Patency, RR, SpO2: stable & adequate BP & HR: stable & adequate Hydration State: stable & adequate Anesthetic Complications: no major complications apparent and Pt Satisfied with anesthetic care
[2020-10-28 07:15] LABS: Basophils # (auto) 0.04 K/uL (0-0.2); Basophils % (auto) 0.5 %; Eosinophils # (auto) 0.43 K/uL (0-0.5); Eosinophils % (auto) 5.6 %; Hematocrit (blood only) 28.5 % (42-52); Hemoglobin 9.3 g/dL (14.0-18.0); Immature Granulocytes # (auto) 0.01 K/uL (0.00-0.02); Immature Granulocytes % (auto) 0.1 %; Lymphocytes # (auto) 1.35 K/uL (1.2-3.4); Lymphocytes % (auto) 17.5 %; Mean Corpuscular Hemoglobin 32.9 pg (25-34); Mean Corpuscular Hgb Conc 32.6 g/dL (32-36); Mean Corpuscular Volume 100.7 fL (80-100); Mean Platelet Volume 8.7 fL (7.4-10.4); Monocytes # (auto) 0.76 K/uL (0.11-0.59); Monocytes % (auto) 9.9 %; Neutrophils # (auto) 5.12 K/uL (1.4-6.5); Neutrophils % (auto) 66.4 %; Platelet Count 300 K/uL (130-400); RDW Standard Deviation 63.1 fL (36.4-46.3); Red Blood Count 2.83 M/uL (4.7-6.1); White Blood Count 7.71 K/uL (4.8-10.8)
--- NOTE | 2020-10-28 07:34 | History & Physical Bridge Note ---
Date of Service October 28, 2020 History & Physical Bridge Note I have examined the patient, reviewed the History & Physical and in the interval since the performance of the History & Physical I have noted the following changes of clinical significance: no changes noted
[2020-10-28 08:21] LABS: BUN Creatinine Ratio 7.3 (10-20); Calcium 9.1 mg/dl (8.5-10.1); Creatinine Clr Calc Pharmacy 10.2 ml/min; Est GFR (African American) 6.9; Est GFR (Non-African American) 5.9; Potassium 4.7 mmol/L (3.5-5.1)
--- NOTE | 2020-10-28 08:24 | Anesthesiology Progress Note ---
Date of Service October 28, 2020 Anesthesia Post Procedure Vital Signs Vital Signs: Temp Pulse Pulse Resp BP Pulse Ox 10/28/20 07:38 36.6 C 70 19 152/80 H 100 10/28/20 03:01 36.5 C 72 14 143/72 H 99 10/28/20 00:52 36.5 C 71 14 146/83 H 99 10/27/20 23:43 36.4 C L 73 14 130/76 99 10/27/20 22:45 36.4 C L 74 14 134/81 100 10/27/20 22:15 36.2 C L 76 14 133/83 100 10/27/20 21:30 36.3 C L 67 13 147/84 H 100 10/27/20 21:20 36.3 C L 67 17 145/86 H 100 10/27/20 21:10 68 17 152/85 H 100 10/27/20 21:01 36.8 C 68 10 L 174/89 H 100 10/27/20 20:05 68 13 145/82 H 100 10/27/20 19:50 36.7 C 67 19 142/81 H 100 10/27/20 19:40 65 13 143/83 H 99 10/27/20 19:30 66 21 148/82 H 99 10/27/20 19:20 65 13 146/88 H 100 10/27/20 19:10 69 17 141/84 H 100 10/27/20 19:03 36.2 C L 72 21 145/84 H 100 10/27/20 14:05 36.6 C 73 20 151/88 H 99 Notes Mental Status: alert / awake / arousable Patient Amnestic to Procedure: Yes Nausea / Vomiting: adequately controlled Pain: adequately controlled Airway Patency, RR, SpO2: stable & adequate BP & HR: stable & adequate Hydration State: stable & adequate Anesthetic Complications: no major complications apparent and Pt Satisfied with anesthetic care
[2020-10-28] MEDS: CALCIUM ACETATE 667 MG CAP/TAB PO SCH ×2 (08:38→12:54)
[2020-10-28] MEDS ORDERED: amLODIPine BESYLATE 5 MG TAB PO SCH (09:00)
[2020-10-28] MEDS ORDERED: NEPHROCAPS PO SCH (09:00)
--- NOTE | 2020-10-28 12:07 | Surgery Progress Note ---
Date of Service October 28, 2020 Assessment & Plan (1) ESRD on dialysis: Doing well Arm without problems D/C today Will have dialysis tomorrow. Admission and Anticipated Discharge Date Admission Date: October 27, 2020 Subjective Complains of arm tightness. No hand pain or dysfunction. Physical Exam Constitutional: hand warm with good flow no neuro deficits of hand incision dry and clean forearm slightly swollen. fistula working well Results & Data ([facility]) Vital Signs (Past 12 Hours) Vital Signs Temp Pulse Pulse Resp BP Pulse Ox 10/28/20 10:48 36.7 C 68 18 145/80 H 99 10/28/20 07:38 36.6 C 70 19 152/80 H 100 10/28/20 03:01 36.5 C 72 14 143/72 H 99 10/28/20 00:52 36.5 C 71 14 146/83 H 99
--- NOTE | 2020-10-28 13:05 | Operative Report ---
Post Operative Report Pre & Post Diagnosis Operation Date: 10/27/20 15:20 Pre-Op Diagnosis: End-stage renal disease on hemodialysis Post-Op Diagnosis: End-stage renal disease on hemodialysis Operation Date: 10/27/20 20:00 Pre-Op Diagnosis: Right Arm Postoperative Hematoma Post-Op Diagnosis: Right Arm Postoperative Hematoma I identified the patient and participated in the time-out.: Yes Procedure Operation Date: 10/27/20 15:20 Actual Procedures p Arterio-venous Fisula Creation, Right Basilic Vein Creation(Right) - Aquiles Florentino MD Operation Date: 10/27/20 20:00 Actual Procedures p Evacuation of Hematoma, Control of Bleeding(Right) - Aquiles Florentino MD Surgeon Aquiles Florentino MD Agriculture Science Teacher Cathy Ortega MD Estimated Blood Loss 50 Findings See Below Specimens None Anesthesia Type MAC Regional Complications none Disposition Accompanied Patient To Recovery: No Disposition: Recovery Room Description of Procedure The patient was taken to the operating suite and placed in the supine position on the operating room table. The patient's identity and surgical procedure were verified. The right arm was prepped and draped in the usual sterile fashion. A team timeout was performed including confirmation of the patient's identity, surgical procedure, and surgical site. A transverse incision was made in the right forearm just distal to the antecubital fossa. The median antecubital vein was dissected out and sidebranches were ligated with 3-0 vicryl ties. The brachial artery was dissected out. Bulldog clamps were placed on the vein and it was transected distally. The distal end was ligated and the proximal end was swung over onto the artery. The artery was clamped and an approximately 4cm arteriotomy was made in the brachial artery. An end-to-side anastomosis was created between the vein and artery using a running 6-0 prolene suture. After completion of the anastomosis a palpable thrill was present over the fistula. Hemostasis was obtained and the incision was closed using 3-0 vicryl for the dermis and 4-0 vicryl for the subcuticular layer. Dermabond was placed over the incision. The patient tolerated the procedure well. At the end of the procedure all instrument, sponge, and needle counts were correct. The patient was taken to the recovery room in satisfactory condition. Dr. Florentino was present and scrubbed for the entire procedure. I attest to the content of the Intraoperative Record and any orders documented therein. Any exceptions are noted below.
[2020-10-28] MEDS ORDERED: SIMVASTATIN 10 MG TAB PO SCH (21:00)
[2020-10-28] MEDS ORDERED: lisinopril 10 MG TAB PO SCH (21:00)
--- NOTE | 2020-11-11 09:17 | Discharge Summary ---
Date of Service October 28, 2020 Admission HPI Per Admitting Provider HPI: _Mr. Sorensen is an elderly male who presents to Dr. Florentino's vascular surgery clinic today for a visit to discuss AV fistula creation. He was previously seen in [facility] by Dr. Florentino to have a PermCath inserted to begin hemodialysis. Patient had utilized his PermCath for a period of time, and then there was concern for possible infection 1 to 2 weeks ago, and he went to [facility] to have his PermCath removed and then 1 placed on the opposite side. Patient denies any fevers chills nausea vomiting or other concerns. Patient's vein mapping which was performed at [facility] prior to his original discharge indicates a usable right upper arm basilic vein for AV fistula creation Admission Exam Per Admitting Provider Constitutional: In general patient is an obese but healthy-appearing well- nourished well-developed middle-aged male in no distress. He is alert and norma ented without any focal deficits. Heart is regular and his lungs are decreased throughout but clear. His abdomen is protuberant due to body habitus, but is soft and nontender with normoactive bowel sounds. Brachial and radial pulses are +3. Femoral pulses are +2. Extremities a pulses are +1 DP and nonpalpable PTs. He has brisk capillary refill no sign of distal ischemia. Principal Diagnosis End stage renal disease Discharge Exam Constitutional: hand warm with good flow no neuro deficits of hand incision dry and clean forearm slightly swollen. fistula working well Discharge Data Allergies Allergy/AdvReac Type Severity Reaction Status Date / Time No Known Allergies Allergy Verified 10/27/20 13:59 Procedures Performed Operation Date: 10/27/20 15:20 Actual Procedures p Arterio-venous Fisula Creation, Right Basilic Vein Creation(Right) - Aquiles Florentino MD Operation Date: 10/27/20 20:00 Actual Procedures p Evacuation of Hematoma, Control of Bleeding(Right) - Aquiles Florentino MD Ordered Studies 10/27/20 05:00 US - OR guided needle placemen Routine Hospital Course (1) ESRD on dialysis: Doing well Arm without problems D/C today Will have dialysis tomorrow. Total Time Total Time Spent Total Time Spent (In Minutes): <30 Discharge Plan Discharge Items Patient Disposition: Home - Self-Care Reason For Visit: End Stage Renal Disease; Hemodialysis Discharge Diagnosis: End stage renal disease Activity: Per Instructions section Non-emergency contact: Surgeon Call non-emergency contact if: your temperature is above 101.5, your wound has increased redness, your wound has increased drainage and your wound pain has increased Follow-up/Referrals: Otto Machuca DO [Primary Care Provider] - Aquiles Florentino MD [Physician] - 11/15/20 1:45 pm Addtl Attending Provider Instructions: ACTIVITY RECOMMENDATIONS: See Above SPECIAL CARE INSTRUCTIONS: Call your doctor if: * Temperature above 101 degrees * Pain not relieved by pain medicine ordered * There is increased drainage or redness from any incision * You have any unanswered questions or concerns. Call [phone] to schedule a follow up appointment if one not already scheduled. Pending Studies at Discharge: No Stand-Alone Forms: My [facility] [employer], Opioid Pain Management Medications and DC Order Prescriptions: New oxycodone-acetaminophen [Percocet] 5-325 mg tablet 1 tab PO Q6H PRN (Reason: pain) Qty: 20 RF: 0 Continued lisinopril 10 mg Tablet 10 mg PO HS Qty: 30 RF: 0 Renal Caps 1 mg Capsule 1 cap PO QAM Qty: 30 RF: 0 acetaminophen 325 mg Tablet 650 mg PO Q4H PRN (Reason: pain) Qty: 0 RF: 0 simvastatin 10 mg tablet 10 mg PO HS RF: 0 amlodipine 5 mg tablet 5 mg PO BID RF: 0 calcium acetate(phosphat bind) 667 mg capsule 1,334 mg PO .WITH SNACKS RF: 0 calcium acetate(phosphat bind) 667 mg capsule 2,001 mg PO TIDM RF: 0 Discharge Orders: Discharge Order (Routine); Ordered 10/27/20 Ordered By: Aquiles Florentino Admission Data Admit Date/Time: 10/27/20 20:57 Attending Provider: Aquiles Florentino Admit Provider: Aquiles Florentino Primary Care Provider: Otto Machuca Other Interventions: Discharge Summary Assessment (RN) Last Done: 10/28/20 12:58
--- NOTE | 2020-12-17 09:10 | Operative Report ---
Post Operative Report Pre & Post Diagnosis Operation Date: 10/27/20 15:20 Pre-Op Diagnosis: End-stage renal disease on hemodialysis Post-Op Diagnosis: End-stage renal disease on hemodialysis Operation Date: 10/27/20 20:00 Pre-Op Diagnosis: Right Arm Postoperative Hematoma Post-Op Diagnosis: Right Arm Postoperative Hematoma I identified the patient and participated in the time-out.: Yes Procedure Operation Date: 10/27/20 15:20 Actual Procedures p Arterio-venous Fisula Creation, Right Basilic Vein Creation(Right) - Aquiles Florentino MD Operation Date: 10/27/20 20:00 Actual Procedures p Evacuation of Hematoma, Control of Bleeding(Right) - Aquiles Florentino MD Surgeon Aquiles Florentino MD Dog [employer] Shredder Operator Cathy Ortega MD Estimated Blood Loss 50 Findings Consistent with Post-Op Diagnosis Specimens None Complications none Disposition Accompanied Patient To Recovery: No Disposition: Recovery Room Indications This is a 65-year-old gentleman who earlier today had a fistula creation in his right arm. In recovery room he was developed a large hematoma. Exploration was recommended. I have discussed the risks options and benefits of the procedure with the patient. The patient understands the risks options and benefits and agrees to the procedure. Description of Procedure The patient was taken the operating placed in the supine position. Timeout was performed and the patient was identified. After anesthesia was accomplished the incision was opened. This revealed the large hematoma which was evacuated. There was bleeding seen from the venous fistula. Apparently a tie had come off of branch of the fistula itself. This was suture-ligated with 6-0 Prolene. The wound was irrigated. Adequate hemostasis was noted. Wound was then closed in usual fashion using running 3-0 Vicryl subtendinous layer and narendra for skin. Sterile dressings were applied.The patient left the operation room in satisfactory condition and tolerated the procedure well. All needle and sponge counts were correct at the end of the procedure. I attest to the content of the Intraoperative Record and any orders documented therein. Any exceptions are noted below.
== END 2020-10-28 14:42 | disposition home or self-care (01) ==
LOC: 3N 13:35 → ASU 13:35